=== PATIENT | female | born 1955 | race Caucasian/White ===

== ENCOUNTER 2018-09-27 14:30 | Inpatient (IN) ==
[2018-09-27] MEDS ORDERED: Nitroglycerin 0.4 MG TAB.SUBL SL PRN (21:49)
[2018-09-27] MEDS ORDERED: *HR* OxyCODONE Immed Rel 5 MG TABLET PO PRN (21:49)
[2018-09-28 05:50] LABS: Basophils % 0.4 %; Eosinophils # 0.2 K/mcL (0.0-0.6); Eosinophils % 3.5 %; Hematocrit 31.5 % (35.3-44.9); Immature Granulocytes % 0.2 % (0-4); Lymphocytes # 0.9 K/mcL (0.6-4.6); Lymphocytes % 18.5 %; Mean Corpuscular HGB Conc 31.7 g/dL (31.6-35.5); Mean Corpuscular Hemoglobin 28.7 pg (28.0-33.3); Mean Corpuscular Volume 90.3 fL (83.0-100.0); Mean Platelet Volume 10.8 fL (9.4-12.4); Monocytes # 0.3 K/mcL (0.0-1.3); Monocytes % 6.5 %; Neutrophils # 3.6 K/mcL (1.6-8.9); Platelet Count 171 K/mcL (140-400); Red Blood Count 3.49 M/mcL (3.82-4.97); Red Cell Distribution Width 18.2 % (11.5-14.5); Segmented Neutrophils % 70.9 %
[2018-09-28 06:07] LABS: Alanine Aminotransferase 9 Units/L (7-52); Albumin 2.7 g/dL (3.5-5.7); Albumin/Globulin Ratio 0.7 (1.1-2.2); Alkaline Phosphatase 326 Units/L (34-104); Aspartate Amino Transferase 18 Units/L (13-39); BUN/Creatinine Ratio 41 (6-26); Bilirubin,Total 1.5 mg/dL (0.3-1.0); Blood Urea Nitrogen 12 mg/dL (8-23); Calcium 8.6 mg/dL (8.6-10.3); Carbon Dioxide 26 mEq/L (23-29); Chloride 105 mEq/L (98-107); Globulin 3.9 g/dL (2.4-3.5); Glucose 82 mg/dL (70-105); Osmolality,Calculated 281 (280-300); Potassium 4.3 mEq/L (3.5-5.1); Sodium 136 mEq/L (136-145); Total Protein 6.6 g/dL (6.4-8.9); eGFR For Non-African Americans > 60 (> 60)
[2018-09-28] MEDS: Nitroglycerin 1 INCH/GM PACKET TP SCH ×3 (07:04→18:14)
[2018-09-28] MEDS: *HR* Digoxin 0.125 MG TABLET PO SCH (08:18)
[2018-09-28] MEDS: Diltiazem CD (24hr) 120 MG CAPSULE PO SCH (08:18)
[2018-09-28] MEDS: methIMAzole 5 MG TABLET PO SCH (08:18)
[2018-09-28] MEDS: Aspirin 325 MG TABLET PO SCH (08:18)
[2018-09-28] MEDS: Lisinopril 20 MG TABLET PO SCH (08:18)
[2018-09-28] MEDS: Lactobacillus 1 EACH CAP.SPRINK PO SCH (08:18)
[2018-09-28] MEDS: Apixaban 5 MG TABLET PO SCH ×2 (08:18→20:19)
[2018-09-28] MEDS: Furosemide 20 MG TABLET PO SCH ×2 (08:18→20:19)
[2018-09-28] MEDS: Bumetanide 1 MG TABLET PO SCH (08:18)
[2018-09-28] MEDS: Isosorbide MONOnitrate (24 HR) 30 MG TAB.ER.24H PO SCH (08:18)
[2018-09-28] MEDS: Venlafaxine XR (24 HR) 75 MG CAP.ER.24H PO SCH (08:19)
[2018-09-28] MEDS: Pregabalin 75 MG CAPSULE PO SCH ×2 (08:19→20:19)
[2018-09-28] MEDS ORDERED: ALPRAZolam 0.5 MG TABLET PO SCH (09:00)
[2018-09-28] MEDS ORDERED: ALPRAZolam 0.25 MG TABLET PO PRN (11:37)
--- NOTE | 2018-09-28 11:39 | Internal Med History&Physical ---
Addendum entered and electronically signed by Marvin Lee MD 09/28/18 13:21: I have personally performed a face to face evaluation on this patient. I have r eviewed and agree with the care plan. History and Exam by me shows: Patient was interviewed but frequently fell asleep during interview. She states that this is because of her multiple medications. To summarize the chart review, emergency room physician comments, patient responses: Patient was admitted 5 days ago) she says 3) with chest pain and dyspnea. She had recurrence of rapid ventricular rate atrial fibrillation. She has about a year of symptoms now felt to be hyperthyroidism and followed with a Dr. Kenyon, endocrinology, at [facility]. She last saw her on September 04 and had an in crease in her medication which she says she takes twice a day. Review of home medicine, however, shows only 40 mg of methimazole once a day. (I suspect noncompliance and we are trying to find actual progress notes from the claims counsel at [facility].) She admits to 20 pound weight loss but is unclear if this since last spring, over the last year, or exactly when. Her chest pain was felt by cardiology at [facility] to be musculoskeletal. For this reason, she was discharged to us for rehabilitation as she was deconditioned and weak. Echocardiogram while at [facility] shows that she has mild to moderate right ventricular dysfunction, large atria bilaterally, and moderate regurgitation of aortic pulmonic and mitral valves. On the way here, during transportation, she developed recurrent low frontal chest pain. This was felt to may musculoskeletal and her EKG was unchanged with no troponins. However, she had markedly elevated d-dimer and underwent CAT scan in the emergency room which showed pleural effusions, bibasilar atelectasis, and reflux of blood into her inferior vena cava, consistent with congestive heart failure. The emergency room physician felt that she did not have angina and that she could be admitted for rehabilitation. She has needed oxygen at home and she is not sure why. She has never been a smoker and has no other major respiratory conditions. She has known coronary disease with CABG times unknown vessels in 2008. She apparently has "9 stents" in placeshe tells me only 3. The most recent stent was about 3 years ago. She is not sure how long it has been since her last cardiac catheterization, may have been then. As noted above, she falls asleep multiple times during interview. Surgeries include CABG as above, cholecystectomy, stomach bypass for weight loss in about 1999. Past medical history as noted. She also is on venlafaxine so I assume she is depressed. Atrial fibrillation is of recent onset and treated with her thyroid medication and multiple medications. She tried beta césar (?) But during her hospitalization she was placed back on her Cardizem, extended release. She has dentures but they are at home. She never has smoked or drank alcohol. She uses no street drugs. She lives at home alone but has a daughter nearby. Family history is noncontributory. Again, ROS is limited by patient's sedation. Patient has no complaint of chest discomfort, dyspnea, orthopnea, breathing problems, palpitations, nausea or vomiting, constipation or diarrhea, other changes in bowel habits, heartburn, difficulty with urination, kidney problems or kidney stones, fevers chills or sweats, rash or itching, seizures, headache or lightheadedness, heat or cold intolerance, blood problems or anemia, or other new complaints, except as mentioned above. Review of systems is otherwise negative. Examination: (Except as mentioned above): General: In no apparent distress, oriented 3. She appears far older than her stated age. She is on oxygen at 2 L per nasal cannula. Of note, she does have muscular atrophy as noted by her palms and temporal muscles. Head: Atraumatic and normocephalic. Eyes: Extraocular muscles are intact, pupils equal round and reactive to light and accommodation. Sclerae anicteric. Ears: External ears are normal to inspection and hearing is grossly limited. She does not admit to being hard of hearing and frequently mis-answers questions if she does not hear adequately. Nose: Patent without lesion noted. Mouth: No intraoral lesions seen. The patient is edentulous. Neck: Supple with trachea midline. There is no thyromegaly or adenopathy and carotids are 2+ without bruit heard. Respiratory: No use of accessory muscles. Lungs are remarkable for diminished breath sounds, throughout except left upper lobe. No rales or rhonchi or wheezes are heard. Cardiovascular: Rate is controlled had about 55 but irregular. There was an irregular examination tumor nursing earlier. Heart sounds are distant. However, she does seem to have a diffuse murmur about 1 or 2/6 systolic. Abdomen: Bowel sounds are normal. No hepatosplenomegaly or masses but does have tenderness which is diffuse, non-guarding or rebound. It seems to be mild in degree. Extremities: No cyanosis clubbing but she does have 1+ left and 2+ right calf and ankle edema. She has right calf tenderness, as well. Homans sign is negative. Neurological: A and O 3. Limited by sedation. Cranial nerves II through XII are intact. No focal deficits and no abnormal movements or postures. Skin: Warm and non-diaphoretic with no lesions noted. Breasts, pelvic and rectal: Not examined. I feel that her problem is uncompensated high output heart failure related to her hyperthyroidism. I discussed with pharmacy and we will give her divided doses of methimazole at 20 mg twice a day. She is on too much sedation and we will decrease her Xanax. In addition, we will decrease her pain medication from OxyContin code own to tramadol. For now, we will allow her to stay on Nitropaste as heart failure adjunct. We will try to obtain records from endocrinology at [facility]. (Incidentally, she says she has a follow-up on October 09 or with that physician.) I have instructed therapy to let us know how she is progressing and to limit her therapy by respiratory or cardiac symptoms. She could have occult ischemia. She has markedly low albumin which could be related to her gastric bypass or her hyperthyroidism with muscle loss. However, she also has a markedly increased alkaline phosphatase so we will need to make sure she does not have: Bile duct stones, other liver dysfunction, etc. This could be related to heart failure, as well. I think primary problem is hypothyroidism and this needs to be addressed with nuclear medicine and thyroid ablation or surgery. Anemia is presumed to be related to chronic illness. Will need to follow. Original Note: Date of Encounter: 09/28/18 Time of Encounter: 11:17 Assessment and Plan (1) General weakness Current visit: Yes Status: Acute PT and OT to eval and treat, will follow progress. (2) Hyperthyroidism Current visit: Yes Status: Chronic continue methimazole, will obtain records from [facility] claims counsel, Dr Naty Mahajan. (3) Anemia Current visit: Yes Status: Chronic hgb stable. 10.0. will monitor. Qualifiers: Anemia type: iron deficiency Iron deficiency anemia type: unspecified iron deficiency Qualified Code(s): D50.9 - Iron deficiency anemia, unspecified (4) COPD (chronic obstructive pulmonary disease) Current visit: Yes Status: Chronic continue O2 and inhaled meds. monitor. Qualifiers: COPD type: unspecified COPD Qualified Code(s): J44.9 - Chronic obstructive pulmonary disease, unspecified (5) Diastolic CHF, acute on chronic Current visit: Yes Status: Acute continue Bumex. monitor. (6) CAD (coronary artery disease) Current visit: Yes Status: Chronic continue current meds. monitor. Qualifiers: Coronary Disease-Associated Artery/Lesion type: [place] artery [place] vs. transplanted heart: [place] heart Associated angina: without angina Qualified Code(s): I25.10 - Atherosclerotic heart disease of [place] coronary artery without angina pectoris (7) Afib Current visit: Yes Status: Chronic continue eliquis. will start telemetry and monitor. Qualifiers: Atrial fibrillation type: chronic Qualified Code(s): I48.2 - Chronic atrial fibrillation (8) Chest pain Current visit: Yes Status: Resolved continue pain meds and nitro. monitor labs and telemetry. Qualifiers: Chest pain type: intercostal pain Qualified Code(s): R07.82 - Intercostal pain Internal Medicine - H&P: HPI Admitted From: Intrahospital Transfer Plans for Post Hospital Care: Home History of present illness: Ms. Dobbins is a 63 year old female admitted to rehab unit from [facility] for deconditioning or weakness due to CAD, and hyperthyroidism. past medical hx includes: CAD, CABG 3 vessel with 9 stents, a fib (currently on apixaban), CHF, COPD, hyperlipidemia, hypertension, osteoarthritis. Patient had gastric bypass in 1999. Patient originally presented to [facility] with complaints of chest pain, palpitations and shortness of breath. She was found to be in a fib with RVR. Also found have pulmonary vascular congestion with moderate bilateral pleural effusions. Patient was diuresed and cardiology consulted and increased Cardizem. Patient is followed by [facility] endocrinology, Dr. Naty Mahajan, will try to obtain records as she is hyperthyroidism. taking methimazoe. has never been a smoker or ETOH lives at home alone, very hard of hearing. pt states she is feeling stronger, has off and on chest pain, states relieved with pain medication.. no SOB. on O2 at 2 liters and maintaining sats >95%. states she uses 4 liters at home. states she has had a recent 20lb weight loss and drinks 4 ensures a day, but has at least 6 BM's per day. Past Med Surg Social Fam HX - Past Medical History Medical history: arthritis, atrial fibrillation, CHF, COPD, coronary artery disease, CVA, GERD, hyperlipidemia, hypertension, myocardial infarction, osteoporosis, thyroid disease, other Additional medical history: PITTING EDEMA Psychiatric history: depression, other - Past Surgical History Surgical History: cholecystectomy, coronary bypass (CABG), hysterectomy, other Additional surgical history: Kidney stones - Social History Smoking Status: Never smoker Smokeless Tobacco Status: No Alcohol use: none Drug use: none - Family History Father Family Member Ethnicity: Non- Living Status: Hx Family Cardiac Disorders: Yes ([place]) Brother Family Member Ethnicity: Non- Living Status: Sister Family Member Ethnicity: Non- Twin of Family Member: Yes, Identical Living Status: Hx Family Cardiac Disorders: Yes (afib) Hx Family Cancer: Yes (Colon) Mother Adopted: No Family Member Ethnicity: Non- Living Status: Hx Family Cardiac Disorders: Yes ([place]) Hx Family Respiratory Disorders: No Hx Family Cancer: Yes (Colon ) Hx Family GI Disorders: Yes (Bowel Cancer) Hx Family Endocrine Disorder: Yes (DM) Hx Family Neuromuscular Disorders: No Hx Family Neurologic Disorders: No Hx Family HEENT Disorders: No Hx Family Autoimmune Disorders: No Internal Medicine - H&P: Meds ALPRAZolam [Xanax 0.5 MG Tablet] 0.5 mg PO TID 02/10/18 [History] Aspirin 325 mg PO DAILY 02/10/18 [History] Bumetanide [Bumex] 1 mg PO DAILY 02/10/18 [History] Digoxin [Lanoxin] 0.125 mg PO DAILY 02/10/18 [History] Ferrous Sulfate [Iron] 325 mg PO Q48H 02/10/18 [History] Furosemide [Lasix] 20 mg PO BID 02/10/18 [History] Isosorbide MONOnitrate (24 HR) [Imdur] 30 mg PO DAILY 02/10/18 [History] Lisinopril [Zestril] 40 mg PO DAILY 02/10/18 [History] Nitroglycerin [Nitrostat] 0.4 mg SL Q5M PRN 02/10/18 [History] Pregabalin [Lyrica] 75 mg PO BID 02/10/18 [History] Simvastatin [Zocor] 20 mg PO HS 02/10/18 [History] methIMAzole [Methimazole] 40 mg PO DAILY 02/10/18 [History] Apixaban [Eliquis] 5 mg PO BID #60 tablet 02/12/18 [Rx] Diltiazem CD (24hr) [Cardizem CD] 120 mg PO DAILY #30 cap.er.24h 02/12/18 [Rx] Amitriptyline [Elavil] 25 mg PO HS 03/08/18 [History] Venlafaxine HCl [Venlafaxine HCl ER] 75 mg PO DAILY 03/08/18 [History] Lactobacillus [Culturelle] 1 each PO DAILY #90 cap.sprink 05/25/18 [Rx] Alendronate Sodium [Fosamax] 70 mg PO GUERRIER 09/23/18 [History] Oxycodone HCl [Roxybond] 5 mg PO BID PRN 09/23/18 [History] Amoxicillin/Clavulanate [Augmentin] 875 mg PO BIDWM #8 tablet 09/27/18 [Rx] Allergy/AdvReac Type Severity Reaction Status Date / Time hydrocodone [From Vicodin] Allergy Swelling Verified 09/27/18 19:34 of Lip/Tongue/Throat morphine AdvReac Rash Verified 09/27/18 19:34 All Systems PM: A 10-system review of systems was performed and is negative for pertinent findings except as documented above in the HPI. - Constitutional Constitutional: weakness, weight loss - EENT Eyes: no change in vision, no discharge, no pain, no photophobia Ears: no ear discharge, no ear pain, no tinnitus Nose, mouth and throat: no dysphagia, no nasal discharge, no neck pain, no sore throat - Cardiovascular Cardiovascular ROS IM: as per HPI, no chest pain, no diaphoresis, no dyspnea, no lightheadedness, no palpitations, no syncope - Respiratory Respiratory: no cough, no dyspnea, no wheezing, no excessive phlegm production - Gastrointestinal Gastrointestinal: no abdominal pain, no diarrhea, no hematemesis, no hematochezia, no melena, no nausea, no vomiting - Genitourinary Genitourinary: no change in urinary stream, no dysuria, no flank pain, no hematuria - Musculoskeletal Musculoskeletal ROS IM: no numbness, no tingling - Integumentary Integumentary IM: no rash, no unusual bruising - Neurological Neurological ROS: weakness, no confusion, no convulsions, no focal weakness, no numbness, no tingling, no tremor(s) - Endocrine Endocrine IM: as per HPI - Hematologic/Lymphatic Hematologic/Lymphatic: no easy bruising - Constitutional Vitals: Temp Pulse Resp BP Pulse Ox 98.1 F 60 14 131/67 97 09/28/18 07:00 09/28/18 07:00 09/28/18 07:00 09/28/18 07:00 09/28/18 07:00 General appearance: Present: cooperative, A&O X 3, pleasant, no acute distress, underweight, answers questions appropriately Exam: [place] - Head Head exam: Present: atraumatic, normocephalic - Eye Eye exam: Present: PERRL, conjuntiva pink, sclera anicteric Pupils: Present: PERRL - Neck Neck exam general surgery: Present: supple, trachea midline. Absent: lymphadenopathy - Respiratory Respiratory exam: Present: CTAB. Absent: accessory muscle use, rales, rhonchi, wheezes Additional comments: diminished bilat bases. - Cardiovascular Cardiovascular exam: Present: irregular rhythm, +S1, +S2. Absent: diastolic murmur, gallop, rubs, systolic murmur - GI/Abdominal GI/Abdominal exam: Present: normal bowel sounds, soft, no peritoneal signs. Absent: distended, tenderness - Extremities Exam Extremities exam: Present: pedal edema, warm, radial pulses palpable and symmetrical. Absent: calf tenderness, cyanotic Additional comments: trace nonpitting edema BLE. - Neurological Exam Neurological exam: Present: CN II-XII intact, oriented X3, no focal deficits. Absent: pronater drift, facial droop, speech deficit - Skin Skin exam: Present: dry, intact Internal Med - H&P Results - Labs CBC & Chem 7: 09/28/18 05:45 09/28/18 05:45 Labs: Short CBC 09/28/18 Range/Units 05:45 WBC 5.1 (4.3-11.1) K/mcL Hgb 10.0 L (11.5-15.4) g/dL Hct 31.5 L (35.3-44.9) % Plt Count 171 (140-400) K/mcL Neutrophils # 3.6 (1.6-8.9) K/mcL BMP 09/28/18 05:45 Sodium 136 Potassium 4.3 Chloride 105 Carbon Dioxide 26 BUN 12 Creatinine 0.29 L Glucose 82 Calcium 8.6 Liver Function 09/28/18 Range/Units 05:45 Total Bilirubin 1.5 H (0.3-1.0) mg/dL AST 18 (13-39) Units/L ALT 9 (7-52) Units/L Alkaline Phosphatase 326 H (34-104) Units/L Albumin 2.7 L (3.5-5.7) g/dL
[2018-09-28 12:36] LABS: Thyroid Stimulating Hormone < 0.010 mcIU/mL (0.340-5.600)
[2018-09-29] MEDS: Nitroglycerin 1 INCH/GM PACKET TP SCH ×5 (00:06→23:41)
[2018-09-29] MEDS: traMADol 50 MG TABLET PO PRN ×2 (05:49→12:38)
[2018-09-29 06:17] LABS: Alanine Aminotransferase 10 Units/L (7-52); Albumin 2.8 g/dL (3.5-5.7); Albumin/Globulin Ratio 0.7 (1.1-2.2); Alkaline Phosphatase 323 Units/L (34-104); Aspartate Amino Transferase 19 Units/L (13-39); BUN/Creatinine Ratio 40 (6-26); Bilirubin,Total 1.3 mg/dL (0.3-1.0); Blood Urea Nitrogen 12 mg/dL (8-23); Calcium 8.8 mg/dL (8.6-10.3); Carbon Dioxide 28 mEq/L (23-29); Chloride 104 mEq/L (98-107); Globulin 4.1 g/dL (2.4-3.5); Glucose 82 mg/dL (70-105); Osmolality,Calculated 283 (280-300); Potassium 4.5 mEq/L (3.5-5.1); Sodium 137 mEq/L (136-145); Total Protein 6.9 g/dL (6.4-8.9); eGFR For Non-African Americans > 60 (> 60)
[2018-09-29] MEDS: Apixaban 5 MG TABLET PO SCH ×2 (08:19→21:03)
[2018-09-29] MEDS: Pregabalin 75 MG CAPSULE PO SCH ×2 (08:20→21:03)
[2018-09-29] MEDS: Diltiazem CD (24hr) 120 MG CAPSULE PO SCH (08:20)
[2018-09-29] MEDS: Venlafaxine XR (24 HR) 75 MG CAP.ER.24H PO SCH (08:20)
[2018-09-29] MEDS: *HR* Digoxin 0.125 MG TABLET PO SCH (08:20)
[2018-09-29] MEDS: Lactobacillus 1 EACH CAP.SPRINK PO SCH (08:20)
[2018-09-29] MEDS: Lisinopril 20 MG TABLET PO SCH (08:20)
[2018-09-29] MEDS: Bumetanide 1 MG TABLET PO SCH (08:20)
[2018-09-29] MEDS: Isosorbide MONOnitrate (24 HR) 30 MG TAB.ER.24H PO SCH (08:20)
[2018-09-29] MEDS: Furosemide 20 MG TABLET PO SCH ×2 (08:20→21:03)
[2018-09-29] MEDS: Aspirin 325 MG TABLET PO SCH (08:20)
[2018-09-29] MEDS: methIMAzole 5 MG TABLET PO SCH (08:21)
--- NOTE | 2018-09-29 09:42 | Internal Med Progress Note ---
Addendum entered and electronically signed by Marvin Lee MD 09/29/18 11:39: I have personally performed a face to face evaluation on this patient. I have r eviewed and agree with the care plan. History and Exam by me shows: Patient had chest discomfort overnight and this morning. It has responded to her Ultram and she has tolerated this better than oxycodone. Nursing notes that she is more alert. The chest pain is left low chest and is related to i nspiration, especially deep inspiration. I encouraged her to try to breathe deeply to keep her lungs opened up. She denies any other new complaints. Telemetry reveals that she is now in sinus rhythm with a rate of 60-70. She has converted out of the junctional rhythm. Discussed care with other providers and/or nursing. Patient has no complaint of chest discomfort, dyspnea, orthopnea, palpitations, nausea or vomiting, constipation or diarrhea, other changes in bowel habits, difficulty with urination, rash or itching, or other new complaints, except as mentioned above. Review of systems is otherwise negative. Examination: (Except as mentioned above): General: In no apparent distress. Alert and oriented 3. Nondiaphoretic. She is far less sleepier than the last 2 days. Head: Atraumatic and normocephalic. Respiratory: Lungs are clear but still has markedly diminished right sided and left basilar breath sounds. Left upper field is normal. This actually sounds better than yesterday but still is diminished. Cardiovascular: Regular rate and rhythm without murmur appreciated. Abdomen: Bowel sounds are normal. No hepatosplenomegaly or mass. She is still diffusely tender, especially at the right upper quadrant, just lateral to the epigastrium. This has no guarding or rebound and is milder than before.. Extremities: No cyanosis or clubbing. There is still edema with right worse than left but this is actually improved versus yesterday. There is no cord or calf tenderness but she has mild right preibial tenderness. Skin: Warm and non-diaphoretic with no new lesions noted. Laboratory still shows elevated alkaline phosphatase and for this reason we will request an abdominal ultrasound when it can be scheduled. This is to looked us make sure she does not have common duct stone, etc. Otherwise, we will consider a bone scan and or assume that this is related to the catabolic state of her hyperthyroidism. I am trying to find how we can do teleconference consult with endocrinology from [facility]. I will try to reach her daughter, today. I am still concerned that her hyperthyroidism needs to be addressed sooner than in December. Because of her limited ability, somnolence, and decreased muscle strength, she was switched from rehabilitation to swing status, today. Original Note: Date of Encounter: 09/29/18 Time of Encounter: 09:40 - Assessment and plan (1) Diastolic CHF, acute on chronic Current Visit: Yes Status: Chronic Assessment and plan: No acute issues at this time. Patient to continue have slight dyspnea with exertion, but respiratory effort is relaxed while at rest. Noted continued diminished breath sounds to basilar morrow. No productive cough. Most recent BNP showed 2085. Minimal pedal edema. Vital signs of been stable. We will continue with current medications. Patient to continue with physical therapy as tolerated. (2) Type 2 diabetes mellitus Current Visit: Yes Status: Chronic Assessment and plan: No acute issues. Patient's glucose have been within normal limits on labs. We will continue with current medications. Qualifiers: Diabetes mellitus manager long term care insulin use: without fdc use Diabetes mellitus complication status: without complication Qualified Code(s): E11.9 - Type 2 diabetes mellitus without complications (3) COPD (chronic obstructive pulmonary disease) Current Visit: Yes Status: Chronic Assessment and plan: No acute issues. Lungs are clear throughout upper morrow with diminished bases. No productive cough. Patient does become dyspneic with minimal effort. We will continue with current medications and bronchodilators. Qualifiers: COPD type: unspecified COPD Qualified Code(s): J44.9 - Chronic obstructive pulmonary disease, unspecified (4) Atrial fibrillation with RVR Current Visit: Yes Status: Chronic Assessment and plan: No acute issues. Patient's heart rate remains irregular with a controlled ventricular rate less than 100. We will continue with current medications. (5) CAD (coronary artery disease) Current Visit: Yes Status: Chronic Assessment and plan: No acute issues. Patient denies any current chest discomforts or palpitations. Patient continues to have nitrates in use through Nitropaste. We will continue with current medications and plan a care. Patient is to continue to mobilize through therapy Qualifiers: Coronary Disease-Associated Artery/Lesion type: [place] artery [place] vs. transplanted heart: [place] heart Associated angina: without angina Qualified Code(s): I25.10 - Atherosclerotic heart disease of [place] coronary artery without angina pectoris (6) Pneumonia Current Visit: Yes Status: Acute Assessment and plan: Patient continues on Augmentin. Lungs with diminished bases but otherwise clear. No productive cough. Patient does continue to have slight dyspnea with exertion. Has been afebrile. We will continue with current plan of care Qualifiers: Pneumonia type: due to unspecified organism Laterality: unspecified laterality Lung location: unspecified part of lung Qualified Code(s): J18.9 - Pneumonia, unspecified organism (7) Hyperthyroidism Current Visit: Yes Status: Acute Assessment and plan: No acute issues. Patient continues on methimazole 40mg daily for hyperthyroidism. Most recent TSH was <0.010. - Subjective Interval history: Patient appears relaxed and currently denies any discomforts or shortness of breath. Patient denies any palpitations. Afebrile. Patient noted to have slight dyspnea during minimal exertion such as repositioning during exam. Patient was asked to hold her breath for a few seconds while listening to carotids, and this made her slightly dyspneic. Patient denies any difficulty breathing and states no productive cough. - Constitutional Vitals: Temp Pulse Resp BP Pulse Ox 98.4 F 68 20 130/55 96 09/29/18 08:10 09/29/18 08:10 09/29/18 08:10 09/29/18 08:10 09/29/18 08:10 General appearance: Present: cooperative, A&O X 3, pleasant, no acute distress, underweight, answers questions appropriately - Head Head exam: Present: atraumatic, normocephalic - Eye Eye exam: Present: PERRL, conjuntiva pink, sclera anicteric Pupils: Present: PERRL - Neck Neck exam general surgery: Present: supple, trachea midline. Absent: lymphadenopathy - Respiratory Respiratory exam: Present: CTAB. Absent: accessory muscle use, rales, rhonchi, wheezes Additional comments: Lungs are clear throughout upper morrow with diminished bases. Respiratory effort appears relaxed while at rest but noted to increase to 24/m with minimal exertion during position changing - Cardiovascular Cardiovascular exam: Present: RRR, +S1, +S2. Absent: diastolic murmur, gallop, rubs, systolic murmur - GI/Abdominal GI/Abdominal exam: Present: normal bowel sounds, soft, no peritoneal signs. Absent: distended, tenderness - Extremities Exam Extremities exam: Present: warm, radial pulses palpable and symmetrical. Ab sent: calf tenderness, cyanotic, pedal edema Additional comments: Slight nonpitting edema to bilateral lower extremities. Bilateral lower legs with skin slightly reddened. - Neurological Exam Neurological exam: Present: CN II-XII intact, oriented X3, no focal deficits. Absent: pronater drift, facial droop, speech deficit - Skin Skin exam: Present: dry, intact Internal Medicine: Result - Labs CBC & Chem 7: 09/28/18 05:45 09/29/18 05:45 Labs: BMP 09/29/18 05:45 Sodium 137 Potassium 4.5 Chloride 104 Carbon Dioxide 28 BUN 12 Creatinine 0.30 L Glucose 82 Calcium 8.8 Liver Function 09/29/18 Range/Units 05:45 Total Bilirubin 1.3 H (0.3-1.0) mg/dL AST 19 (13-39) Units/L ALT 10 (7-52) Units/L Alkaline Phosphatase 323 H (34-104) Units/L Albumin 2.8 L (3.5-5.7) g/dL Consult Discharge Plan - Plan Referrals: Mu Smith, [facility]IXER [Primary Care Provider] -
[2018-09-30] MEDS: traMADol 50 MG TABLET PO PRN ×3 (03:25→18:03)
[2018-09-30] MEDS: Nitroglycerin 1 INCH/GM PACKET TP SCH ×3 (05:53→18:03)
[2018-09-30] MEDS: Lisinopril 20 MG TABLET PO SCH (08:18)
[2018-09-30] MEDS: Bumetanide 1 MG TABLET PO SCH (08:18)
[2018-09-30] MEDS: methIMAzole 5 MG TABLET PO SCH (08:18)
[2018-09-30] MEDS: Pregabalin 75 MG CAPSULE PO SCH ×2 (08:18→20:49)
[2018-09-30] MEDS: Furosemide 20 MG TABLET PO SCH ×2 (08:18→20:50)
[2018-09-30] MEDS: Apixaban 5 MG TABLET PO SCH ×2 (08:18→20:50)
[2018-09-30] MEDS: Aspirin 325 MG TABLET PO SCH (08:18)
[2018-09-30] MEDS: Diltiazem CD (24hr) 120 MG CAPSULE PO SCH (08:18)
[2018-09-30] MEDS: Lactobacillus 1 EACH CAP.SPRINK PO SCH (08:18)
[2018-09-30] MEDS: *HR* Digoxin 0.125 MG TABLET PO SCH (08:18)
[2018-09-30] MEDS: Venlafaxine XR (24 HR) 75 MG CAP.ER.24H PO SCH (08:18)
[2018-09-30] MEDS: Isosorbide MONOnitrate (24 HR) 30 MG TAB.ER.24H PO SCH (08:18)
--- NOTE | 2018-09-30 12:40 | Internal Med Progress Note ---
Addendum entered and electronically signed by Abby Treviño 10/02/18 20:33: I have personally performed a face to face evaluation on this patient. I have reviewed and agree with the care plan Original Note: Date of Encounter: 09/30/18 Time of Encounter: 12:38 - Assessment and plan (1) Diastolic CHF, acute on chronic Current Visit: Yes Status: Chronic Assessment and plan: Continues with no issues. Patient to continue have slight dyspnea with exertion, but respiratory effort is relaxed while at rest. Noted continued diminished breath sounds to basilar morrow. No productive cough. Most recent BNP showed 2085. Minimal pedal edema. Vital signs of been stable. We will continue with current medications. Patient to continue with physical therapy as tolerated. (2) Type 2 diabetes mellitus Current Visit: Yes Status: Chronic Assessment and plan: No acute issues. Patient's glucose have been within normal limits on labs. We will continue with current medications. Qualifiers: Diabetes mellitus long goods drier insulin use: without group home use Diabetes mellitus complication status: without complication Qualified Code(s): E11.9 - Type 2 diabetes mellitus without complications (3) COPD (chronic obstructive pulmonary disease) Current Visit: Yes Status: Chronic Assessment and plan: No acute issues. Lungs are clear throughout upper morrow with diminished bases. No productive cough. Patient does become dyspneic with minimal effort. We will continue with current medications and bronchodilators. Qualifiers: COPD type: unspecified COPD Qualified Code(s): J44.9 - Chronic obstructive pulmonary disease, unspecified (4) CAD (coronary artery disease) Current Visit: Yes Status: Chronic Qualifiers: Coronary Disease-Associated Artery/Lesion type: [place] artery [place] vs. transplanted heart: [place] heart Associated angina: without angina Qualified Code(s): I25.10 - Atherosclerotic heart disease of [place] coronary artery without angina pectoris (5) Pneumonia Current Visit: Yes Status: Acute Assessment and plan: Patient continues on Augmentin. Lungs with diminished bases but otherwise clear. No productive cough. Patient does continue to have slight dyspnea with exertion. Has been afebrile. We will continue with current plan of care Qualifiers: Pneumonia type: due to unspecified organism Laterality: unspecified laterality Lung location: unspecified part of lung Qualified Code(s): J18.9 - Pneumonia, unspecified organism (6) Hyperthyroidism Current Visit: Yes Status: Acute Assessment and plan: No acute issues. Patient continues on methimazole 40mg daily for hyperthyroidism. Most recent TSH was <0.010. (7) Chest pain Current Visit: Yes Status: Resolved Assessment and plan: Patient continues complaining of pain to her left chest flank, which she states increases with movement and deep inspiration. Initial cardiac workup has been negative. Patient has been on the monitor until yesterday afternoon with no ectopy noted. We will continue with current pain medications. We will obtain a ESR and CRP with next set of labs Qualifiers: Chest pain type: intercostal pain Qualified Code(s): R07.82 - Intercostal pain - Time Spent With Patient less than 15 minutes - Subjective Interval history: Patient appears relaxed and currently denies any discomforts or shortness of breath, but does states that she experienced chest pain to the left chest flank earlier this morning. States that her pain increases with movement and deep inspiration. Patient denies any palpitations. Afebrile. Patient denies any difficulty breathing and states no productive cough. - Constitutional Vitals: Temp Pulse Resp BP Pulse Ox 98.0 F 81 16 108/68 95 09/30/18 08:19 09/30/18 08:19 09/30/18 08:19 09/30/18 08:19 09/30/18 05:47 General appearance: Present: cooperative, A&O X 3, pleasant, no acute distress, underweight, answers questions appropriately - Head Head exam: Present: atraumatic, normocephalic - Eye Eye exam: Present: PERRL, conjuntiva pink, sclera anicteric Pupils: Present: PERRL - Neck Neck exam general surgery: Present: supple, trachea midline. Absent: lymph adenopathy - Respiratory Respiratory exam: Present: CTAB. Absent: accessory muscle use, rales, rhonchi, wheezes - Cardiovascular Cardiovascular exam: Present: RRR, +S1, +S2. Absent: diastolic murmur, gallop, rubs, systolic murmur - GI/Abdominal GI/Abdominal exam: Present: normal bowel sounds, soft, no peritoneal signs. Absent: distended, tenderness - Extremities Exam Extremities exam: Present: warm, radial pulses palpable and symmetrical. Absent: calf tenderness, cyanotic, pedal edema - Neurological Exam Neurological exam: Present: CN II-XII intact, oriented X3, no focal deficits. Absent: pronater drift, facial droop, speech deficit - Skin Skin exam: Present: dry, intact Internal Medicine: Result - Labs CBC & Chem 7: 09/28/18 05:45 09/29/18 05:45 Consult Discharge Plan - Plan Referrals: Mu Smith, DENTAL AMALGAM PROCESSOR [Primary Care Provider] -
[2018-10-01] MEDS: Nitroglycerin 1 INCH/GM PACKET TP SCH ×4 (00:07→21:27)
[2018-10-01] MEDS: traMADol 50 MG TABLET PO PRN ×3 (00:12→21:30)
[2018-10-01 05:19] LABS: Hematocrit 38.5 % (35.3-44.9); Hemoglobin 12.3 g/dL (11.5-15.4); Mean Corpuscular HGB Conc 31.9 g/dL (31.6-35.5); Mean Corpuscular Hemoglobin 28.7 pg (28.0-33.3); Mean Corpuscular Volume 89.7 fL (83.0-100.0); Mean Platelet Volume 11.2 fL (9.4-12.4); Platelet Count 209 K/mcL (140-400); Red Blood Count 4.29 M/mcL (3.82-4.97); Red Cell Distribution Width 16.6 % (11.5-14.5)
[2018-10-01 05:51] LABS: Alanine Aminotransferase 16 Units/L (7-52); Albumin/Globulin Ratio 0.7 (1.1-2.2); Alkaline Phosphatase 311 Units/L (34-104); Aspartate Amino Transferase 30 Units/L (13-39); BUN/Creatinine Ratio 53 (6-26); Bilirubin,Total 1.1 mg/dL (0.3-1.0); Blood Urea Nitrogen 18 mg/dL (8-23); Calcium 8.8 mg/dL (8.6-10.3); Carbon Dioxide 29 mEq/L (23-29); Chloride 100 mEq/L (98-107); Globulin 4.3 g/dL (2.4-3.5); Glucose 81 mg/dL (70-105); Magnesium 2.2 mg/dL (1.6-2.6); Osmolality,Calculated 279 (280-300); Potassium 4.4 mEq/L (3.5-5.1); Sodium 134 mEq/L (136-145); Total Protein 7.3 g/dL (6.4-8.9); eGFR For Non-African Americans > 60 (> 60)
[2018-10-01] MEDS: Isosorbide MONOnitrate (24 HR) 30 MG TAB.ER.24H PO SCH (08:46)
[2018-10-01] MEDS: Apixaban 5 MG TABLET PO SCH ×2 (08:46→21:27)
[2018-10-01] MEDS: Bumetanide 1 MG TABLET PO SCH (08:46)
[2018-10-01] MEDS: Aspirin 325 MG TABLET PO SCH (08:46)
[2018-10-01] MEDS: Lactobacillus 1 EACH CAP.SPRINK PO SCH (08:46)
[2018-10-01] MEDS: methIMAzole 5 MG TABLET PO SCH (08:46)
[2018-10-01] MEDS: Pregabalin 75 MG CAPSULE PO SCH (08:46)
[2018-10-01] MEDS: *HR* Digoxin 0.125 MG TABLET PO SCH (08:46)
[2018-10-01] MEDS: Lisinopril 20 MG TABLET PO SCH (08:46)
[2018-10-01] MEDS: Venlafaxine XR (24 HR) 75 MG CAP.ER.24H PO SCH (08:46)
[2018-10-01] MEDS: Furosemide 20 MG TABLET PO SCH ×2 (08:46→21:27)
[2018-10-01] MEDS: Diltiazem CD (24hr) 120 MG CAPSULE PO SCH (08:47)
[2018-10-01] MEDS ORDERED: 0.9 % Sodium Chloride 500 ML IVC ONE (11:06)
[2018-10-01] MEDS: Pregabalin 50 MG CAPSULE PO SCH (21:28)
[2018-10-02] MEDS: Nitroglycerin 1 INCH/GM PACKET TP SCH ×3 (04:59→21:15)
[2018-10-02] MEDS: Bumetanide 1 MG TABLET PO SCH (08:21)
[2018-10-02] MEDS: Apixaban 5 MG TABLET PO SCH ×2 (08:21→21:14)
[2018-10-02] MEDS: Furosemide 20 MG TABLET PO SCH ×2 (08:21→21:14)
[2018-10-02] MEDS: Diltiazem CD (24hr) 120 MG CAPSULE PO SCH (08:21)
[2018-10-02] MEDS: Lactobacillus 1 EACH CAP.SPRINK PO SCH (08:22)
[2018-10-02] MEDS: Pregabalin 50 MG CAPSULE PO SCH ×2 (08:24→21:14)
[2018-10-02] MEDS: Venlafaxine XR (24 HR) 75 MG CAP.ER.24H PO SCH (08:24)
[2018-10-02] MEDS: *HR* Digoxin 0.125 MG TABLET PO SCH (08:24)
[2018-10-02] MEDS: Lisinopril 20 MG TABLET PO SCH (08:24)
[2018-10-02] MEDS: Aspirin 325 MG TABLET PO SCH (08:25)
[2018-10-02] MEDS: Isosorbide MONOnitrate (24 HR) 30 MG TAB.ER.24H PO SCH (08:25)
[2018-10-02] MEDS: methIMAzole 5 MG TABLET PO SCH (08:25)
[2018-10-02] MEDS: traMADol 50 MG TABLET PO PRN ×2 (12:39→21:27)
--- NOTE | 2018-10-02 20:45 | Internal Med Progress Note ---
Date of Encounter: 10/01/18 Time of Encounter: 09:15 - Subjective Interval history: - Assessment and plan (1) Diastolic CHF, acute on chronic Current Visit: Yes Status: Chronic Assessment and plan: Pt is volume contracted having high volume diarrhea and systolic bp low in mid 70s will give 500 cc NS once will decrease her q 8 hr nitropast to 1/2 inch may DC nitropaste as tolerated pt continues on her PO long acting nitrate at 30 mg and her dig and cardizem will decrease lisinopril from 40 to 20 mg continue to monitor if diarrhea resolves off of augmentin, will change lisinopril back to 40 mg (2) Type 2 diabetes mellitus Current Visit: Yes Status: Chronic Assessment and plan: No acute issues. Patient's glucose have been within normal limits on labs. We will continue with current medications. Qualifiers: Diabetes mellitus penitentiary insulin use: without penitentiary use Diabetes mellitus complication status: without complication Qualified Code(s): E11.9 - Type 2 diabetes mellitus without complications (3) COPD (chronic obstructive pulmonary disease) Current Visit: Yes Status: Chronic Assessment and plan: No acute issues. Lungs are clear throughout upper morrow with diminished bases. No productive cough. Patient does become dyspneic with minimal effort. We will continue with current medications and bronchodilators. Qualifiers: COPD type: unspecified COPD Qualified Code(s): J44.9 - Chronic obstructive pulmonary disease, unspecified (4) CAD (coronary artery disease) Current Visit: Yes Status: Chronic Qualifiers: Coronary Disease-Associated Artery/Lesion type: [place] artery [place] vs. transplanted heart: [place] heart Associated angina: without angina Qualified Code(s): I25.10 - Atherosclerotic heart disease of [place] coronary artery without angina pectoris stable BP lower will decrease her q 8 hr nitropast to 1/2 inch may DC as tolerated pt continues on her PO long acting nitrate at 30 mg and her dig and cardizem will decrease lisinopril from 40 o 20 mg (5) Pneumonia Current Visit: Yes Status: Acute Assessment and plan: Patient continues on Augmentin. Pneumonia resolved Because she is having severe diarrhea will DC it now if further antbx needed will choose alternative Lungs with diminished bases but otherwise clear. No productive cough. Has been afebrile. We will continue with current plan of care Qualifiers: Pneumonia type: due to unspecified organism Laterality: unspecified laterality Lung location: unspecified part of lung Qualified Code(s): J18.9 - Pneumonia, unspecified organism (6) Hyperthyroidism Current Visit: Yes Status: Acute Assessment and plan: No acute issues. Patient continues on methimazole 40mg daily for hyperthyroidism. Most recent TSH was <0.010. 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 - consider if pt would be candidate for other thyroid treatments (7) Chest pain Current Visit: Yes Status: Resolved Assessment and plan: Patient currently denies CP her blood pressure is running lower today Qualifiers: Chest pain type: intercostal pain Qualified Code(s): R07.82 - Intercostal pain - Time Spent With Patient less than 15 minutes - Subjective Interval history: PT has today reported two episodes of high volume watery diarrhea she is eating but says she feels very gassy she is still taking augmentin she states she has had several surgeries reports that her first major surgery was gastric bypass surgery says she weighed about 370 pound when had surgery thinks in 2002 says after that she lost about 70 pound but had dumping sydrome and frequent nausea some vomiting if things got stuck says she had many abd surgeries besides that including esther and total hysterectomy says she continued to loose weight but says after her she lost a lot of weight EXAM - Constitutional General appearance: Present: cooperative WF A&O with occasional memory lapses pleasant, no acute distress, Cachectic, answers questions appropriately mild HUGHES - Head Head exam: Present: atraumatic, normocephalic - Eye Eye exam: Present: PERRL, conjuntiva pink, sclera anicteric Pupils: Present: PERRL - Neck Neck exam general surgery: Present: supple, trachea midline. no mass palp - Respiratory Respiratory exam: Present: CTAB. Absent: accessory muscle use, rales, rhonchi, wheezes - Cardiovascular Cardiovascular exam: Present: RRR, +S1, +S2. Absent: diastolic murmur, gallop, rubs, systolic murmur - GI/Abdominal GI/Abdominal exam: Present: scaphoid normal bowel sounds, soft, no peritoneal signs. Absent: distended, tenderness - Extremities Exam Extremities exam: Present: warm, radial pulses palpable and symmetrical. Absent: calf tenderness, cyanotic, pedal edema - Neurological Exam Neurological exam: Present: CN II-XII intact, - Skin Skin exam: Present: dry, intact large scars to chest and abd intact - Constitutional Vitals: Temp Pulse Resp BP Pulse Ox 99.0 F 65 14 105/52 99 10/02/18 19:11 10/02/18 19:11 10/02/18 19:11 10/02/18 19:11 10/02/18 19:11 General appearance: Present: cooperative, A&O X 3, pleasant, no acute distress, underweight, answers questions appropriately Internal Medicine: Result - Labs CBC & Chem 7: 10/01/18 05:15 10/01/18 05:15 Consult Discharge Plan - Plan Referrals: Mu Smith, FLY FINISHER [Primary Care Provider] -
--- NOTE | 2018-10-02 20:49 | Internal Med Progress Note ---
Date of Encounter: 10/02/18 Time of Encounter: 17:30 - Subjective Interval history: - Assessment and plan (1) Diastolic CHF, acute on chronic Current Visit: Yes Status: Chronic Assessment and plan: Pt was volume contracted yesterday feels improved today had high volume diarrhea and had yesterday systolic bp low in mid 70s did get 500 cc NS once and felt better did decrease her q 8 hr nitropast to 1/2 inch may DC nitropaste as tolerated pt is not having CP today pt continues on her PO long acting nitrate at 30 mg and her dig and cardizem will decrease lisinopril from 40 to 20 mg continue to monitor if diarrhea resolves off of augmentin, will change lisinopril back to 40 mg (2) Type 2 diabetes mellitus Current Visit: Yes Status: Chronic Assessment and plan: No acute issues. Patient's glucose have been within normal limits on labs. We will continue with current medications. Qualifiers: Diabetes mellitus terminal gauger supervisor insulin use: without long-term use Diabetes mellitus complication status: without complication Qualified Code(s): E11.9 - Type 2 diabetes mellitus without complications (3) COPD (chronic obstructive pulmonary disease) Current Visit: Yes Status: Chronic Assessment and plan: No acute issues. Lungs are clear throughout upper morrow with diminished bases. No productive cough. Patient does become dyspneic with minimal effort. We will continue with current medications and bronchodilators. Qualifiers: COPD type: unspecified COPD Qualified Code(s): J44.9 - Chronic obstructive pulmonary disease, unspecified (4) CAD (coronary artery disease) Current Visit: Yes Status: Chronic Qualifiers: Coronary Disease-Associated Artery/Lesion type: [place] artery [place] vs. transplanted heart: [place] heart Associated angina: without angina Qualified Code(s): I25.10 - Atherosclerotic heart disease of [place] coronary artery without angina pectoris stable BP lower will decrease her q 8 hr nitropast to 1/2 inch may DC as tolerated pt continues on her PO long acting nitrate at 30 mg and her dig and cardizem will decrease lisinopril from 40 o 20 mg (5) Pneumonia Current Visit: Yes Status: Acute Assessment and plan: . Pneumonia resolved Did DC augmentin if further antbx needed will choose alternative Lungs with diminished bases but otherwise clear. No productive cough. Has been afebrile. We will continue with current plan of care Qualifiers: Pneumonia type: due to unspecified organism Laterality: unspecified laterality Lung location: unspecified part of lung Qualified Code(s): J18.9 - Pneumonia, unspecified organism (6) Hyperthyroidism Current Visit: Yes Status: Acute Assessment and plan: No acute issues. Patient continues on methimazole 40mg daily for hyperthyroidism. Most recent TSH was <0.010. 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 manager revenue - consider if pt would be candidate for other thyroid treatments (7) Chest pain Current Visit: Yes Status: Resolved Assessment and plan: Patient currently denies CP her blood pressure is running lower today Qualifiers: Chest pain type: intercostal pain Qualified Code(s): R07.82 - Intercostal pain - Time Spent With Patient less than 15 minutes - Subjective Interval history: PT has yesterday reported two episodes of high volume watery diarrhea had been on augmentin - did DC this yesterday pt reports today no diarrhea eating better feels better she states she has had several surgeries reports that her first major surgery was gastric bypass surgery says she weighed about 370 pound when had surgery thinks in 2002 says after that she lost about 70 pound but had dumping sydrome and frequent nausea some vomiting if things got stuck says she had many abd surgeries besides that including esther and total hysterectomy says she continued to loose weight but says after her she lost a lot of weight EXAM - Constitutional General appearance: Present: cooperative WF A&O with occasional memory lapses pleasant, no acute distress, Cachectic, answers questions appropriately mild [place] - Head Head exam: Present: atraumatic, normocephalic - Eye Eye exam: Present: PERRL, conjuntiva pink, sclera anicteric Pupils: Present: PERRL - Neck Neck exam general surgery: Present: supple, trachea midline. no mass palp - Respiratory Respiratory exam: Present: CTAB. Absent: accessory muscle use, rales, rhonchi, wheezes - Cardiovascular Cardiovascular exam: Present: RRR, +S1, +S2. Absent: diastolic murmur, gallop, rubs, systolic murmur - GI/Abdominal GI/Abdominal exam: Present: scaphoid normal bowel sounds, soft, no peritoneal signs. Absent: distended, tenderness - Extremities Exam Extremities exam: Present: warm, radial pulses palpable and symmetrical. Absent: calf tenderness, cyanotic, pedal edema - Neurological Exam Neurological exam: Present: CN II-XII intact, - Skin Skin exam: Present: dry, intact large scars to chest and abd intact - Constitutional Vitals: Temp Pulse Resp BP Pulse Ox 99.0 F 65 14 105/52 99 10/02/18 19:11 10/02/18 19:11 10/02/18 19:11 10/02/18 19:11 10/02/18 19:11 General appearance: Present: cooperative, A&O X 3, pleasant, no acute distress, underweight, answers questions appropriately Internal Medicine: Result - Labs CBC & Chem 7: 10/01/18 05:15 10/01/18 05:15 Consult Discharge Plan - Plan Referrals: Mu Smith, BLOOD BANK TECHNICIAN [Primary Care Provider] -
[2018-10-02] MEDS ORDERED: NON-FORMULARY MEDICATION 1 EACH EACH (Alendronate Sodium [Fosamax] 70 MG) PO SCH (21:49)
[2018-10-03] MEDS: Nitroglycerin 1 INCH/GM PACKET TP SCH (05:17)
[2018-10-03 05:27] LABS: Basophils % 0.8 %; Eosinophils # 0.2 K/mcL (0.0-0.6); Eosinophils % 4.5 %; Hematocrit 36.5 % (35.3-44.9); Hemoglobin 11.7 g/dL (11.5-15.4); Lymphocytes # 1.2 K/mcL (0.6-4.6); Lymphocytes % 24.4 %; Mean Corpuscular HGB Conc 32.1 g/dL (31.6-35.5); Mean Corpuscular Volume 90.6 fL (83.0-100.0); Mean Platelet Volume 11.4 fL (9.4-12.4); Monocytes # 0.5 K/mcL (0.0-1.3); Monocytes % 9.6 %; Platelet Count 209 K/mcL (140-400); Red Blood Count 4.03 M/mcL (3.82-4.97); Red Cell Distribution Width 16.5 % (11.5-14.5); Segmented Neutrophils % 60.7 %
[2018-10-03 05:38] LABS: Alanine Aminotransferase 25 Units/L (7-52); Albumin 2.9 g/dL (3.5-5.7); Albumin/Globulin Ratio 0.7 (1.1-2.2); Alkaline Phosphatase 290 Units/L (34-104); Aspartate Amino Transferase 45 Units/L (13-39); BUN/Creatinine Ratio 55 (6-26); Bilirubin,Total 0.9 mg/dL (0.3-1.0); Blood Urea Nitrogen 21 mg/dL (8-23); Calcium 8.8 mg/dL (8.6-10.3); Carbon Dioxide 29 mEq/L (23-29); Chloride 102 mEq/L (98-107); Globulin 4.1 g/dL (2.4-3.5); Glucose 102 mg/dL (70-105); Osmolality,Calculated 281 (280-300); Potassium 4.5 mEq/L (3.5-5.1); Sodium 134 mEq/L (136-145); eGFR For Non-African Americans > 60 (> 60)
[2018-10-03] MEDS: Apixaban 5 MG TABLET PO SCH ×2 (09:24→21:09)
[2018-10-03] MEDS: Venlafaxine XR (24 HR) 75 MG CAP.ER.24H PO SCH (09:24)
[2018-10-03] MEDS: Lactobacillus 1 EACH CAP.SPRINK PO SCH (09:24)
[2018-10-03] MEDS: Diltiazem CD (24hr) 120 MG CAPSULE PO SCH (09:24)
[2018-10-03] MEDS: Furosemide 20 MG TABLET PO SCH ×2 (09:24→21:09)
[2018-10-03] MEDS: Isosorbide MONOnitrate (24 HR) 30 MG TAB.ER.24H PO SCH (09:25)
[2018-10-03] MEDS: *HR* Digoxin 0.125 MG TABLET PO SCH (09:25)
[2018-10-03] MEDS: Pregabalin 50 MG CAPSULE PO SCH ×2 (09:25→21:09)
[2018-10-03] MEDS: Aspirin 325 MG TABLET PO SCH (09:25)
[2018-10-03] MEDS: Bumetanide 1 MG TABLET PO SCH (09:26)
[2018-10-03] MEDS: methIMAzole 5 MG TABLET PO SCH (09:53)
[2018-10-03] MEDS: traMADol 50 MG TABLET PO PRN ×2 (09:53→19:23)
--- NOTE | 2018-10-03 10:51 | Internal Med Progress Note ---
Addendum entered and electronically signed by Marvin Lee MD 10/03/18 12:52: I have personally performed a face to face evaluation on this patient. I have r eviewed and agree with the care plan. History and Exam by me shows: Patient is feeling dizzy. Actually, she says "my head is swimming." Because of this, she was checked over the weekend and again today and found have low blood pressure. Her medications were held and varied for this. Now, her blood pressure is actually in the moderately high range. She has no nystagmus or other symptoms of vertigo including no nausea, dizziness, presyncope, etc. Therapy was held this morning for this reason and we will try this afternoon to resume therapies. She has apparently been in regular rhythm, throughout the weekend and she is regular today. She denies chest discomfort except in the low abdomen with pressure or deep breaths. Breathing is okay "except without my oxygen." O2 saturation is always been in the high 90s. She has used little Xanax. She has needed no nitroglycerin. She states her bowels are still soft but they have improved since she stopped using the injury. She has some signs of delirium which persist. For instance, she states that her dog is a cross between 2 wall and remained ear. She also has mislabeled me her "boyfriend." Her daughter, Angely, his been of great concern in that they are in consistencies in her story and her discussion about her relationship with her daughter. Discussed care with other providers and/or nursing. Patient has no complaint of chest discomfort, dyspnea, orthopnea, palpitations, nausea or vomiting, constipation or diarrhea, other changes in bowel habits, difficulty with urination, rash or itching, or other new complaints, except as mentioned above. Review of systems is otherwise negative. Examination: (Except as mentioned above): General: In no apparent distress. Alert and oriented 3. Nondiaphoretic. Head: Atraumatic and normocephalic. Respiratory: No use of accessory muscles. Lungs are clear throughout. Normal airflow. Cardiovascular: Regular rate and rhythm without murmur appreciated. Abdomen: Bowel sounds are normal. No hepatosplenomegaly mass or tenderness appreciated. Patient is examined upright in chair and this also limits exam. Extremities: No cyanosis, clubbing, or edema. Edema has totally resolved. Skin: Warm and non-diaphoretic with no new lesions noted. She may have been intravascularly depleted by the additional change in medication. For this reason, all medicines were held today and nitroglycerin and lisinopril were discontinued. We will follow her blood pressure and symptoms and see about increasing. Again, I think hypothyroidism is her main problem and we will try to reach endocrinology at [facility] about definitive treatment. She still has mildly elevated alkaline phosphatase and I think she should have an ultrasound in the next day or so. Original Note: Date of Encounter: 10/03/18 Time of Encounter: 10:49 - Assessment and plan (1) General weakness Current Visit: Yes Status: Acute Assessment and plan: Continue PT and OT. Will follow progress. (2) Hyperthyroidism Current Visit: Yes Status: Chronic Assessment and plan: Continue current medication. Will follow closely. (3) Anemia Current Visit: Yes Status: Chronic Assessment and plan: Stable. Will monitor labs. Hemoglobin 11.7 today. Qualifiers: Anemia type: iron deficiency Iron deficiency anemia type: unspecified iron deficiency Qualified Code(s): D50.9 - Iron deficiency anemia, unspecified (4) COPD (chronic obstructive pulmonary disease) Current Visit: Yes Status: Chronic Assessment and plan: Stable. Continue current medication. Qualifiers: COPD type: unspecified COPD Qualified Code(s): J44.9 - Chronic obstructive pulmonary disease, unspecified (5) Diastolic CHF, acute on chronic Current Visit: Yes Status: Chronic Assessment and plan: Controlled with current medication. Monitor. (6) CAD (coronary artery disease) Current Visit: Yes Status: Chronic Assessment and plan: Denies chest pain. Continue current medication. Qualifiers: Coronary Disease-Associated Artery/Lesion type: [place] artery [place] vs. transplanted heart: [place] heart Associated angina: without angina Qualified Code(s): I25.10 - Atherosclerotic heart disease of [place] coronary artery without angina pectoris (7) Afib Current Visit: Yes Status: Chronic Assessment and plan: Rate and rhythm stable. Continue eliguis Qualifiers: Atrial fibrillation type: chronic Qualified Code(s): I48.2 - Chronic atrial fibrillation (8) Chest pain Current Visit: Yes Status: Resolved Assessment and plan: denies chest pain at this time. will monitor. Qualifiers: Chest pain type: intercostal pain Qualified Code(s): R07.82 - Intercostal pain - Time Spent With Patient less than 15 minutes - Subjective Interval history: Patient currently resting in bed and on hold for therapy. Patient was complaining of dizziness and had hypotension yesterday. Lisinopril was discontinued as well as Nitro paste. Patient states dizziness has resolved and not complaining of chest pain. No shortness of breath, fever, chills, nausea vomiting. Patient has had chronic diarrhea. Trying to maintaining appetite and hydration. - Constitutional Vitals: Temp Pulse Resp BP Pulse Ox 98.0 F 55 14 111/55 99 10/03/18 07:28 10/03/18 07:28 10/03/18 07:28 10/03/18 07:28 10/03/18 07:28 General appearance: Present: cooperative, A&O X 3, pleasant, no acute distress, underweight, answers questions appropriately - Head Head exam: Present: atraumatic, normocephalic - Eye Eye exam: Present: PERRL, conjuntiva pink, sclera anicteric Pupils: Present: PERRL - Neck Neck exam general surgery: Present: supple, trachea midline. Absent: lymphadenopathy - Respiratory Respiratory exam: Present: CTAB. Absent: accessory muscle use, rales, rhonchi, wheezes - Cardiovascular Cardiovascular exam: Present: RRR, +S1, +S2. Absent: diastolic murmur, gallop, rubs, systolic murmur - GI/Abdominal GI/Abdominal exam: Present: normal bowel sounds, soft, no peritoneal signs. Absent: distended, tenderness - Extremities Exam Extremities exam: Present: warm, radial pulses palpable and symmetrical. Absent: calf tenderness, cyanotic, pedal edema - Neurological Exam Neurological exam: Present: CN II-XII intact, oriented X3, no focal deficits. Absent: pronater drift, facial droop, speech deficit - Skin Skin exam: Present: dry, intact Internal Medicine: Result - Labs CBC & Chem 7: 10/03/18 05:05 10/03/18 05:05 Labs: Short CBC 10/03/18 Range/Units 05:05 WBC 4.9 (4.3-11.1) K/mcL Hgb 11.7 (11.5-15.4) g/dL Hct 36.5 (35.3-44.9) % Plt Count 209 (140-400) K/mcL Neutrophils # 3.0 (1.6-8.9) K/mcL BMP 10/03/18 05:05 Sodium 134 L Potassium 4.5 Chloride 102 Carbon Dioxide 29 BUN 21 Creatinine 0.38 L Glucose 102 Calcium 8.8 Liver Function 10/03/18 Range/Units 05:05 Total Bilirubin 0.9 (0.3-1.0) mg/dL AST 45 H (13-39) Units/L ALT 25 (7-52) Units/L Alkaline Phosphatase 290 H (34-104) Units/L Albumin 2.9 L (3.5-5.7) g/dL Consult Discharge Plan - Plan Referrals: Mu Smith, ENVIRONMENTAL RESEARCH SCIENTIST [Primary Care Provider] -
[2018-10-03] MEDS: Lisinopril 20 MG TABLET PO SCH (13:45)
[2018-10-03] MEDS ORDERED: Nitroglycerin 0.4 MG TAB.SUBL SL PRN (15:27)
[2018-10-04 07:11] LABS: Thyroid Stimulating Hormone < 0.010 mcIU/mL (0.340-5.600)
[2018-10-04] MEDS: *HR* Digoxin 0.125 MG TABLET PO SCH (08:48)
[2018-10-04] MEDS: Isosorbide MONOnitrate (24 HR) 30 MG TAB.ER.24H PO SCH (08:48)
[2018-10-04] MEDS: Aspirin 325 MG TABLET PO SCH (08:48)
[2018-10-04] MEDS: Furosemide 20 MG TABLET PO SCH ×2 (08:48→20:28)
[2018-10-04] MEDS: Venlafaxine XR (24 HR) 75 MG CAP.ER.24H PO SCH (08:48)
[2018-10-04] MEDS: Apixaban 5 MG TABLET PO SCH ×2 (08:48→20:28)
[2018-10-04] MEDS: Pregabalin 50 MG CAPSULE PO SCH ×2 (08:48→20:28)
[2018-10-04] MEDS: methIMAzole 5 MG TABLET PO SCH (08:48)
[2018-10-04] MEDS: Lactobacillus 1 EACH CAP.SPRINK PO SCH (08:48)
[2018-10-04] MEDS: traMADol 50 MG TABLET PO PRN ×3 (08:48→23:18)
[2018-10-04] MEDS: Diltiazem CD (24hr) 120 MG CAPSULE PO SCH (08:48)
--- NOTE | 2018-10-04 10:38 | Internal Med Progress Note ---
Addendum entered and electronically signed by Marvin Lee MD 10/04/18 12:26: I have personally performed a face to face evaluation on this patient. I have r eviewed and agree with the care plan. History and Exam by me shows: Patient is having 10 out of 10 chest pain at her right lower chest and in her right breast. This is been going on for the last little while and worsened as the morning went on. There is no shortness of breath or associated cough, injury, etc. Therapy apparently feels that she is not able to participate adequately and so we will need to look at ECF placement or [id number] care at home. services program manager aware and will talk to family. I spoke at length on [address] Mahajan. She is an endocrinology fellow at [employer] and expresses concern that patient is getting an adequate care. She states that patient frequently has not shown up for appointments and they have been concerned so they have kept her on and their patient population. She states that her daughter has not kept appointments are communicated with them, either. Initially, she said a thyroid scan and uptake would be necessary to calculate the dose. Because of the patient's noncompliance and ongoing problems that I explained to her, they would simply perform a dose calculation and try to get her a dose of radioactive iodine. They set up with an add on appointment with her October 17 we will need to arrange communication and transportation whether she is here or at another facility or at home. She gave me her fax number which I provided to nursing and they will send lab from today, to her. 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 I agreed stating that this plus medication may have had something to do with it. Of note, the patient stated this morning "I do not know why it took him 2 years to get this under control." Discussed care with other providers and/or nursing. Patient has no complaint of chest discomfort, dyspnea, orthopnea, palpitations, nausea or vomiting, constipation or diarrhea, other changes in bowel habits, difficulty with urination, rash or itching, or other new complaints, except as mentioned above. Review of systems is otherwise negative. Examination: (Except as mentioned above): General: In no apparent distress. Alert and oriented 3. Nondiaphoretic. Head: Atraumatic and normocephalic. Respiratory: No use of accessory muscles. She actually has improved airflow but still diminished at bases. There is left basilar rales, noted. She has no rubs or pleuritic sounds. She has marked tenderness at the right anterior costochondral junction and costal margin. Cardiovascular: Irregularly irregular with a faster heart rate. Abdomen: Bowel sounds are normal. No hepatosplenomegaly mass or tenderness appreciated. Patient is examined upright in chair and this also limits exam. Extremities: No cyanosis clubbing or edema. There is no cord or calf tenderness. Skin: Warm and non-diaphoretic with no new lesions noted. EKG shows atrial fibrillation with a rate of 109. There are also diffuse ST and T-wave changes which might be digitalis effect. Of note, her dig level was 0.4, yesterday. We will obtain a chest x-ray to verify that she has no pleural change but I think this is costochondritis. She is already have thyroid lab this morning but we will make sure that her CBC is not worsening and chest x-ray is not changed, to assess whether the pleural effusion has not turned into empyema. Original Note: Date of Encounter: 10/04/18 Time of Encounter: 10:36 - Assessment and plan (1) General weakness Current Visit: Yes Status: Acute Assessment and plan: Continue PT and OT. Will follow progress. (2) Hyperthyroidism Current Visit: Yes Status: Chronic Assessment and plan: Continue current medication. Will follow closely. (3) Anemia Current Visit: Yes Status: Chronic Assessment and plan: Stable. Will monitor labs. Hemoglobin 11.7 yesterday. Qualifiers: Anemia type: iron deficiency Iron deficiency anemia type: unspecified iron deficiency Qualified Code(s): D50.9 - Iron deficiency anemia, unspecified (4) COPD (chronic obstructive pulmonary disease) Current Visit: Yes Status: Chronic Assessment and plan: Stable. Continue current medication. Qualifiers: COPD type: unspecified COPD Qualified Code(s): J44.9 - Chronic obstructive pulmonary disease, unspecified (5) Diastolic CHF, acute on chronic Current Visit: Yes Status: Chronic Assessment and plan: Controlled with current medication. Monitor. (6) CAD (coronary artery disease) Current Visit: Yes Status: Chronic Assessment and plan: Denies chest pain. Continue current medication. Qualifiers: Coronary Disease-Associated Artery/Lesion type: [place] artery [place] vs. transplanted heart: [place] heart Associated angina: without angina Qualified Code(s): I25.10 - Atherosclerotic heart disease of [place] coronary artery without angina pectoris (7) Afib Current Visit: Yes Status: Chronic Assessment and plan: Rate and rhythm stable. Continue eliquis Qualifiers: Atrial fibrillation type: chronic Qualified Code(s): I48.2 - Chronic atrial fibrillation (8) Chest pain Current Visit: Yes Status: Resolved Assessment and plan: denies chest pain at this time. will monitor. Qualifiers: Chest pain type: intercostal pain Qualified Code(s): R07.82 - Intercostal pain - Time Spent With Patient 25 - 35 minutes - Subjective Interval history: participating with therapy. no hypotension episodes yet today. Lisinopril was discontinued as well as Nitro paste. continues to report dizziness. not complaining of chest pain. No shortness of breath, fever, chills, nausea vomiting. Patient has had chronic diarrhea. Trying to maintaining appetite and hydration. - Constitutional Vitals: Temp Pulse Resp BP Pulse Ox 98.3 F 75 18 153/83 100 10/04/18 09:00 10/04/18 09:00 10/04/18 09:00 10/04/18 09:00 10/04/18 09:00 General appearance: Present: cooperative, A&O X 3, pleasant, no acute distress, underweight, answers questions appropriately - Head Head exam: Present: atraumatic, normocephalic - Eye Eye exam: Present: PERRL, conjuntiva pink, sclera anicteric Pupils: Present: PERRL - Neck Neck exam general surgery: Present: supple, trachea midline. Absent: lymphadenopathy - Respiratory Respiratory exam: Present: CTAB. Absent: accessory muscle use, rales, rhonchi, wheezes - Cardiovascular Cardiovascular exam: Present: irregular rhythm, +S1, +S2. Absent: diastolic murmur, gallop, rubs, systolic murmur Additional comments: apical pulse 84 - GI/Abdominal GI/Abdominal exam: Present: normal bowel sounds, soft, no peritoneal signs. Absent: distended, tenderness - Extremities Exam Extremities exam: Present: warm, radial pulses palpable and symmetrical. Absent: calf tenderness, cyanotic, pedal edema - Neurological Exam Neurological exam: Present: CN II-XII intact, oriented X3, no focal deficits. Absent: pronater drift, facial droop, speech deficit - Skin Skin exam: Present: dry, intact Internal Medicine: Result - Labs CBC & Chem 7: 10/03/18 05:05 10/03/18 05:05 Consult Discharge Plan - Plan Referrals: Mu Smith, FURNACE REPAIRER HELPER [Primary Care Provider] -
[2018-10-04 11:44] LABS: ABG Base Excess 3 mEq/L (-2 to 3); ABG HCO3 28 mEq/L (21-27); ABG Oxygen Saturation 99 % (95-98); ABG PCO2 41 mmHg (35-45); ABG PH 7.43 pH Units (7.32-7.45); ABG PO2 130 mmHg (85-104); ABG TCO2 29 mEq/L (20-26)
[2018-10-04] MEDS ORDERED: *HR* Digoxin 0.125 MG TABLET PO ONE (13:05)
[2018-10-04 13:16] LABS: Basophils # 0.1 K/mcL (0.0-0.2); Basophils % 0.9 %; Eosinophils # 0.1 K/mcL (0.0-0.6); Eosinophils % 1.4 %; Hemoglobin 12.4 g/dL (11.5-15.4); Immature Granulocytes % 0.3 % (0-4); Lymphocytes # 1.2 K/mcL (0.6-4.6); Lymphocytes % 17.5 %; Mean Corpuscular HGB Conc 31.8 g/dL (31.6-35.5); Mean Corpuscular Hemoglobin 28.8 pg (28.0-33.3); Mean Corpuscular Volume 90.5 fL (83.0-100.0); Mean Platelet Volume 11.3 fL (9.4-12.4); Monocytes # 0.4 K/mcL (0.0-1.3); Monocytes % 6.4 %; Neutrophils # 5.1 K/mcL (1.6-8.9); Platelet Count 265 K/mcL (140-400); Red Blood Count 4.31 M/mcL (3.82-4.97); Red Cell Distribution Width 16.3 % (11.5-14.5); Segmented Neutrophils % 73.5 %
--- NOTE | 2018-10-04 14:45 | Electrocardiograph Report ---
[address] [place] [address] Test Date: 2018-09-28 Pat Name: Jeff Dobbins Department: 2001 Room: 115 Gender: Photolithographer: Jenae : 1955 Requested By: Marvin Lee Order Number: [id number] Reading MD: Haroldo Jennings Measurements Intervals [place] Rate: 44 P: [place]: 0 QRS: 6 QRSD: 89 T: 154 QT: 460 QTc: 412 Interpretive Statements JUNCTIONAL RHYTHM ST DEVIATION AND MODERATE T-WAVE ABNORMALITY, CONSIDER ANTEROLATERAL ISCHEMIA [- 0.1+ mV T WAVE IN V3-V6] Electronically Signed On 10-04-2018 14:43:43 EST by Haroldo Jennings
--- NOTE | 2018-10-04 16:21 | Electrocardiograph Report ---
[address] [place], [place] [address] Test Date: 2018-10-04 Pat Name: Jeff Dobbins Department: 2001 Room: 115 Gender: Lace Roller: : 1955 Requested By: Marvin Lee Order Number: [id number] Reading MD: Janet Rodriguez Measurements Intervals [place] Rate: 109 P: [place]: 0 QRS: 33 QRSD: 85 T: 244 QT: 315 QTc: 379 Interpretive Statements ATRIAL FIBRILLATION WITH RAPID VENTRICULAR RESPONSE ST DEVIATION AND MODERATE T-WAVE ABNORMALITY, CONSIDER LATERAL ISCHEMIA [-0.1+ mV T WAVE IN I/aVL/V5/V6] Electronically Signed On 10-04-2018 16:19:34 EST by Janet Rodriguez
[2018-10-05] MEDS: traMADol 50 MG TABLET PO PRN ×3 (06:07→21:15)
[2018-10-05] MEDS: Venlafaxine XR (24 HR) 75 MG CAP.ER.24H PO SCH (09:17)
[2018-10-05] MEDS: Pregabalin 50 MG CAPSULE PO SCH ×2 (09:17→21:15)
[2018-10-05] MEDS: Apixaban 5 MG TABLET PO SCH ×2 (09:17→21:14)
[2018-10-05] MEDS: Aspirin 325 MG TABLET PO SCH (09:17)
[2018-10-05] MEDS: *HR* Digoxin 0.25 MG TABLET PO SCH (09:17)
[2018-10-05] MEDS: Diltiazem CD (24hr) 120 MG CAPSULE PO SCH (09:17)
[2018-10-05] MEDS: Furosemide 20 MG TABLET PO SCH ×2 (09:18→21:15)
[2018-10-05] MEDS: Isosorbide MONOnitrate (24 HR) 30 MG TAB.ER.24H PO SCH (09:18)
[2018-10-05] MEDS: Lactobacillus 1 EACH CAP.SPRINK PO SCH (09:18)
--- NOTE | 2018-10-05 11:13 | Psychological Evaluation ---
Date of Encounter: 10/05/18 Time of Encounter: 10:15 History of Present Illness History of present illness: Ms. Dobbins is a 63 year old female admitted to rehab unit from [facility] for deconditioning or weakness due to CAD, and hyperthyroidism. past medical hx includes: CAD, CABG 3 vessel with 9 stents, a fib (currently on apixaban), CHF, COPD, hyperlipidemia, hypertension, osteoarthritis. Patient had gastric bypass in 1999. Patient originally presented to [facility] with complaints of chest pain, palpitations and shortness of breath. She was found to be in a fib with RVR. Also found have pulmonary vascular congestion with moderate bilateral pleural effusions. Patient was diuresed and cardiology consulted and increased Cardizem. 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 - Psychiatric History Psychiatric history: Reports: depression Additional Psychiatric History: Pt has never been involved in counseling. She has been given medication for anxiety and depression over the years after the loss of her son 2014. She stated, currently she does not take her Xanax as prescribed because it makes her "loopy". She further noted 2 other deaths since 2014 - 04/2017 and twin sister 06/2018. Home Medications and Allergies ALPRAZolam [Xanax 0.5 MG Tablet] 0.5 mg PO TID 02/10/18 [History] Aspirin 325 mg PO DAILY 02/10/18 [History] Bumetanide [Bumex] 1 mg PO DAILY 02/10/18 [History] Digoxin [Lanoxin] 0.125 mg PO DAILY 02/10/18 [History] Ferrous Sulfate [Iron] 325 mg PO Q48H 02/10/18 [History] Furosemide [Lasix] 20 mg PO BID 02/10/18 [History] Isosorbide MONOnitrate (24 HR) [Imdur] 30 mg PO DAILY 02/10/18 [History] Lisinopril [Zestril] 40 mg PO DAILY 02/10/18 [History] Nitroglycerin [Nitrostat] 0.4 mg SL Q5M PRN 02/10/18 [History] Pregabalin [Lyrica] 75 mg PO BID 02/10/18 [History] Simvastatin [Zocor] 20 mg PO HS 02/10/18 [History] methIMAzole [Methimazole] 40 mg PO DAILY 02/10/18 [History] Apixaban [Eliquis] 5 mg PO BID #60 tablet 02/12/18 [Rx] Diltiazem CD (24hr) [Cardizem CD] 120 mg PO DAILY #30 cap.er.24h 02/12/18 [Rx] Amitriptyline [Elavil] 25 mg PO HS 03/08/18 [History] Venlafaxine HCl [Venlafaxine HCl ER] 75 mg PO DAILY 03/08/18 [History] Lactobacillus [Culturelle] 1 each PO DAILY #90 cap.sprink 05/25/18 [Rx] Alendronate Sodium [Fosamax] 70 mg PO GUERRIER 09/23/18 [History] Oxycodone HCl [Roxybond] 5 mg PO BID PRN 09/23/18 [History] Amoxicillin/Clavulanate [Augmentin] 875 mg PO BIDWM #8 tablet 09/27/18 [Rx] Allergy/AdvReac Type Severity Reaction Status Date / Time hydrocodone [From Vicodin] Allergy Swelling Verified 09/27/18 19:34 of Lip/Tongue/Throat morphine AdvReac Rash Verified 09/27/18 19:34 Social History - Social History Social History: Lives alone but stays at daughters when need be. She has been with her daughter prior to this hospitalization. She is after 1 marriage. She has 8 children (7 step). She has numerous grandchildren (great/great great). 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 - Tobacco Use Smoking Status: Never smoker - Alcohol Use Alcohol Use: none - Drug Use Drug Use: none Cognitive/Emotional Assessment - Cognitive Ability Language Function Ability: No Deficits Noted Verbal Communication Ability: Conversational Style Level of Alertness: Alert Memory Description: Short Term Intact Orientation: Person, Place, Name, Age, Date of , Day of Month, Day of Week, Month, Year, Time of Day Ability to Follow Directions: Good Speech Pattern: Normal rate Thought Process: Logical Additional Findings: Pt able to repeat 3/3 words with several repetitions due to hearing loss. Noted some confusion due to hearing loss. Able to recall 3/3 worsd 5min after presentation. Digits forward 5 and backward 3. Unable to correctly spell WORLD forward or backward. Knew pres, previous pres, and governor. Able to count backwards from 20 by 3 with cuing to stay on task- "minus 3". Unable to subtract $14.45 from $20.00 - $4.25. She is noted to need time to process and comprehend tasks and cuing to sustain attention. - Emotional Status Mood Description: Depressed Affect Description: Congruent with mood Additional Findings: Stated she struggles with depression when she is alone and sitting around home thus tries to keep busy with visiting friends and christian. Assessment & Plan - Diagnosis (1) MDD (major depressive disorder) Qualifiers: Major depression recurrence: recurrent Active/Remission status: currently active Major depression episode severity: severe Psychotic features: without psychotic features Qualified Code(s): F33.2 - Major depressive disorder, re current severe without psychotic features - Prognosis Prognosis: Good - Treatment Plan Treatment Plan/Recommendations: Will follow while inpatient to process losses and changes in physical functioning. Next Session Date: 10/12/18 Procedures - Participants Therapy Participant: Patient - Session Time Session Start Time: 10:15 Session Stop Time: 10:45
[2018-10-05] MEDS: methIMAzole 5 MG TABLET PO SCH (11:51)
--- NOTE | 2018-10-05 12:16 | Internal Med Progress Note ---
Addendum entered and electronically signed by Marvin Lee MD 10/05/18 14:04: I have personally performed a face to face evaluation on this patient. I have r eviewed and agree with the care plan. History and Exam by me shows: Patient admits to no problems, currently. However, upon further questioning and based on statements from therapy staff, she admits to chest palpitations. She states that it feels "like my heart is about to explode out of my chest." The pain from yesterday afternoon at her right lower chest which was pleuritic and worsening, has resolved. She was found to have a rapid irregular heartbeat and was up to 145 or 150. EKG showed atrial flutter with a rate of 112. She has her chronic ST changes consistent with digitalis effect or chronic strain. No ischemic changes. I spoke with Dr. Mahajan at [facility], endocrinology, who suggested that we arranged transfer if acceptable to her attending, Dr. Blair. She will let me know for sure. I will speak with the patient's daughter about transfer, as able. We discussed the patient and team meeting today and she has many inconsistent stories which might be disorientation, delirium, or her hard of hearing state. Discussed care with other providers and/or nursing. Patient has no complaint of chest discomfort, dyspnea, orthopnea, palpitations, nausea or vomiting, constipation or diarrhea, other changes in bowel habits, difficulty with urination, rash or itching, or other new complaints, except as mentioned above. Review of systems is otherwise negative. Examination: (Except as mentioned above): General: In no apparent distress. Alert and oriented 3. Nondiaphoretic. Head: Atraumatic and normocephalic. Respiratory: No use of accessory muscles. Lungs are clear throughout. Normal airflow. Cardiovascular: Regular rate and rhythm without murmur appreciated. Abdomen: Bowel sounds are normal. No hepatosplenomegaly mass or tenderness appreciated. Patient is examined upright in chair and this also limits exam. Extremities: There is no cyanosis or clubbing. The patient has no cord or calf tenderness. However, she has 1-2+ edema which is worse than yesterday. Nursing states that this is worse from this morning. Skin: Warm and non-diaphoretic with no new lesions noted. I still feel that her definitive treatment is radioactive iodine and that she needs to be evaluated for this, as quickly as possible. Dr. Mahajan agrees and this will be our plan presuming that we can get a bed for her at [facility]. The patient is aware and agrees with this plan and states that we do not need to involve her daughter's permission but that it is okay to tell her daughter what is going on with her. Original Note: Date of Encounter: 10/05/18 Time of Encounter: 12:14 - Assessment and plan (1) Atrial fibrillation with RVR Current Visit: Yes Status: Chronic Assessment and plan: Currently patient's heart rate shows atrial fibrillation with a ventricular rate of 100-120 her EKG that was obtained. Vital signs have remained stable. Patient states that she has experienced palpitations and slight dyspnea with minimal exertion. Patient's heart rate was noted to be at 140 immediately after physical therapy. He currently on Cardizem. Patient also with history of hyperthyroidism, which has been under treatment. We will discuss further with Dr. Lee.. (2) Diastolic CHF, acute on chronic Current Visit: Yes Status: Chronic Assessment and plan: Currently patient's heart rate has been elevated with atrial fibrillation. Vital signs have been stable Patient to continue have slight dyspnea with exertion, but respiratory effort is relaxed while at rest. Noted continued diminished breath sounds to basilar morrow. No productive cough. Most recent BNP showed 2086. Minimal pedal edema. We will continue with current medications. Patient to continue with physical therapy as tolerated. (3) Type 2 diabetes mellitus Current Visit: Yes Status: Chronic Assessment and plan: No acute issues. Patient's glucose have been within normal limits on labs. We will continue with current medications. 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 Lungs are clear throughout upper mor[place] with diminished bases. No productive cough. Patient does become dyspneic with minimal effort. We w ill continue with current medications and bronchodilators. Qualifiers: COPD type: unspecified COPD Qualified Code(s): J44.9 - Chronic obstructive pulmonary disease, unspecified (5) Hyperthyroidism Current Visit: Yes Status: Acute Assessment and plan: No acute issues. Patient continues on methimazole 40mg daily for hyperthyroidism. Most recent TSH was <0.010. - Time Spent With Patient less than 15 minutes - Subjective Interval history: Patient appears relaxed but noted to become winded during exertion while at physical therapy. Patient states she does experience palpitations this morning, but denies any chest pain. Patient denies any dyspnea while at rest. Nurse has reported patient has had a heart rate has been greater than 120 on vital signs. Patient remains afebrile - Constitutional Vitals: Temp Pulse Resp BP Pulse Ox 98.3 F 67 18 146/67 95 10/05/18 08:06 10/05/18 08:06 10/05/18 08:06 10/05/18 08:06 10/05/18 08:06 General appearance: Present: cooperative, A&O X 3, pleasant, no acute distress, underweight, answers questions appropriately - Head Head exam: Present: atraumatic, normocephalic - Eye Eye exam: Present: PERRL, conjuntiva pink, sclera anicteric Pupils: Present: PERRL - Neck Neck exam general surgery: Present: supple, trachea midline. Absent: lymphadenopathy - Respiratory Respiratory exam: Present: CTAB. Absent: accessory muscle use, rales, rhonchi, wheezes Additional comments: Patient noted to have slight dyspnea on exertion while at physical therapy. At rest patients respiratory effort appears relaxed. - Cardiovascular Cardiovascular exam: Present: irregular rhythm, RRR, +S1, +S2. Absent: d iastolic murmur, gallop, rubs, systolic murmur Additional comments: Patient's heart rate remains elevated with pulse difficult to palpate and B and thready. Apical pulse was at 140 immediately after performing exercises for physical therapy. EKG was obtained which shows atrial fibrillation at a rate of 105. No ventricular ectopy noted - GI/Abdominal GI/Abdominal exam: Present: normal bowel sounds, soft, no peritoneal signs. Ab sent: distended, tenderness - Extremities Exam Extremities exam: Present: warm, radial pulses palpable and symmetrical. Absent: calf tenderness, cyanotic, pedal edema - Neurological Exam Neurological exam: Present: CN II-XII intact, oriented X3, no focal deficits. Absent: pronater drift, facial droop, speech deficit - Skin Skin exam: Present: dry, intact Internal Medicine: Result - Labs CBC & Chem 7: 10/04/18 13:00 10/03/18 05:05 Labs: Short CBC 10/04/18 Range/Units 13:00 WBC 6.9 (4.3-11.1) K/mcL Hgb 12.4 (11.5-15.4) g/dL Hct 39.0 (35.3-44.9) % Plt Count 265 (140-400) K/mcL Neutrophils # 5.1 (1.6-8.9) K/mcL - ABG Interpretation ABG results: ABG ABG pH 7.43 pH Units (7.32-7.45) 10/04/18 11:41 ABG pCO2 41 mmHg (35-45) 10/04/18 11:41 ABG pO2 130 mmHg (85-104) H 10/04/18 11:41 ABG O2 Saturation 99 % (95-98) H 10/04/18 11:41 - Impressions Impressions Chest X-Ray 10/04/18 11:41 IMPRESSION: Small right pleural effusion, decreased. D/ / Tangela Kent MD / Tangela Kent MD Interpreting Provider: Tangela Kent MD Consult Discharge Plan - Plan Referrals: [facility], Endocrinology Clinic [Other] (Please arrive 10 minutes early for registrati on. ) Mu Smith, RN CLINICAL APPEALS [Primary Care Provider] -
--- NOTE | 2018-10-05 14:56 | Electrocardiograph Report ---
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
[2018-10-06] MEDS: traMADol 50 MG TABLET PO PRN ×2 (05:14→17:11)
[2018-10-06 05:30] LABS: Hematocrit 36.9 % (35.3-44.9); Mean Corpuscular HGB Conc 32.5 g/dL (31.6-35.5); Mean Corpuscular Volume 89.1 fL (83.0-100.0); Mean Platelet Volume 11.9 fL (9.4-12.4); Platelet Count 263 K/mcL (140-400); Red Blood Count 4.14 M/mcL (3.82-4.97); Red Cell Distribution Width 15.9 % (11.5-14.5)
[2018-10-06 05:52] LABS: Alanine Aminotransferase 37 Units/L (7-52); Albumin 3.2 g/dL (3.5-5.7); Albumin/Globulin Ratio 0.8 (1.1-2.2); Alkaline Phosphatase 354 Units/L (34-104); Aspartate Amino Transferase 55 Units/L (13-39); BUN/Creatinine Ratio 68 (6-26); Bilirubin,Total 0.9 mg/dL (0.3-1.0); Blood Urea Nitrogen 25 mg/dL (8-23); Calcium 9.1 mg/dL (8.6-10.3); Carbon Dioxide 30 mEq/L (23-29); Chloride 97 mEq/L (98-107); Globulin 4.2 g/dL (2.4-3.5); Glucose 78 mg/dL (70-105); Magnesium 2.1 mg/dL (1.6-2.6); Osmolality,Calculated 279 (280-300); Potassium 4.9 mEq/L (3.5-5.1); Sodium 133 mEq/L (136-145); Total Protein 7.4 g/dL (6.4-8.9); eGFR For Non-African Americans > 60 (> 60)
[2018-10-06] MEDS: Lactobacillus 1 EACH CAP.SPRINK PO SCH (08:43)
[2018-10-06] MEDS: Aspirin 325 MG TABLET PO SCH (08:43)
[2018-10-06] MEDS: Pregabalin 50 MG CAPSULE PO SCH (08:43)
[2018-10-06] MEDS: Bumetanide 1 MG TABLET PO SCH (08:43)
[2018-10-06] MEDS: Furosemide 20 MG TABLET PO SCH (08:43)
[2018-10-06] MEDS: Apixaban 5 MG TABLET PO SCH (08:43)
[2018-10-06] MEDS: methIMAzole 5 MG TABLET PO SCH (08:43)
[2018-10-06] MEDS: Venlafaxine XR (24 HR) 75 MG CAP.ER.24H PO SCH (08:43)
[2018-10-06] MEDS: Isosorbide MONOnitrate (24 HR) 30 MG TAB.ER.24H PO SCH (08:44)
[2018-10-06] MEDS: Diltiazem CD (24hr) 120 MG CAPSULE PO SCH (08:44)
[2018-10-06] MEDS: *HR* Digoxin 0.25 MG TABLET PO SCH (08:44)
--- NOTE | 2018-10-06 09:15 | Electrocardiograph Report ---
[place] [address] Test Date: 2018-10-05 Pat Name: Jeff Dobbins Department: 2001 Room: 115 Gender: F Financial Adviser: : 1955 Requested By: Willis Jimenez Order Number: [id number] Reading MD: Ken Aden Measurements Intervals [place] Rate: 105 P: [place]: 0 QRS: 28 QRSD: 85 T: -83 QT: 337 QTc: 398 Interpretive Statements Atrial fibrillation with rapid ventricular response ST DEVIATION AND MODERATE T-WAVE ABNORMALITY, CONSIDER ANTEROLATERAL ISCHEMIA [- 0.1+ mV T WAVE IN V3-V6] ST DEVIATION AND MODERATE T-WAVE ABNORMALITY, CONSIDER INFERIOR ISCHEMIA [-0.1+ mV T WAVE IN II/aVF] Electronically Signed On 10-06-2018 9:14:08 EST by Ken Aden
[2018-10-06 11:35] VITALS: BP 103/58
--- NOTE | 2018-10-06 12:59 | Internal Med Progress Note ---
Date of Encounter: 10/06/18 Time of Encounter: 12:57 - Assessment and plan (1) Atrial fibrillation with RVR Current Visit: Yes Status: Chronic Assessment and plan: Patient continues with an atrial fibrillation. Patient was started on low-dose beta césar yesterday and today her heart rate has decreased to 50-60. Patient's blood pressure has remained stable and she denies any near syncopal type symptoms. Denies any palpitations or chest discomforts. We will discontinue metoprolol at this time. We will discontinue physical therapy at this time until patient is more stable cardiac-peña. We will continue on Cardizem and continue to monitor patient's rhythm. We will place patient on cardiac monitoring. (2) Diastolic CHF, acute on chronic Current Visit: Yes Status: Chronic Assessment and plan: No acute issues at this time. With continued conduction issues, as noted above note. We will continue with current medications and continue to follow closely. (3) Type 2 diabetes mellitus Current Visit: Yes Status: Chronic Assessment and plan: No acute issues. Patient's glucose have been within normal limits on labs. We will continue with current medications. Qualifiers: Diabetes mellitus fdc insulin use: without fdc use Diabetes mellitus complication status: without complication Qualified Code(s): E11.9 - Type 2 diabetes mellitus without complications (4) COPD (chronic obstructive pulmonary disease) Current Visit: Yes Status: Chronic Assessment and plan: No acute issues. Lungs are clear throughout upper morrow with diminished bases. No productive cough. Patient does become dyspneic with minimal effort. We will continue with current medications and bronchodilators. Qualifiers: COPD type: unspecified COPD Qualified Code(s): J44.9 - Chronic obstructive pulmonary disease, unspecified (5) Hyperthyroidism Current Visit: Yes Status: Acute Assessment and plan: Patient continues on methimazole 40mg daily for hyperthyroidism. Most recent TSH this morning was <0.010. Patient continues to have conduction issues with her ventricular rate while in atrial fibrillation. We will continue to try to have patient transferred to [facility] for further evaluation and treatment per endocrinology. - Time Spent With Patient less than 15 minutes - Subjective Interval history: Patient appears relaxed currently denies any discomforts or shortness of breath. Patient denies any palpitations. Nurse reports patient's heart rate has been somewhat low at the low 60s. EKG was obtained which shows patient to continue to be in atrial fib/flutter with a ventricular rate between 50 and 60. Patient was started on metoprolol 25 mg twice a day yesterday. Blood pressure has been stable. Patient denies any dizziness or lightheadedness. Continues to deny any palpitations. Patient does complain of continued slight pain to her posterior right chest, which increases with deep inspiration or when repositioning. No obvious injury noted. - Constitutional Vitals: Temp Pulse Resp BP Pulse Ox 98.0 F 56 14 103/58 99 10/06/18 11:34 10/06/18 11:34 10/06/18 11:34 10/06/18 11:34 10/06/18 11:34 General appearance: Present: cooperative, A&O X 3, pleasant, no acute distress, underweight, answers questions appropriately - Head Head exam: Present: atraumatic, normocephalic - Eye Eye exam: Present: PERRL, conjuntiva pink, sclera anicteric Pupils: Present: PERRL - Neck Neck exam general surgery: Present: supple, trachea midline. Absent: lymphadenopathy - Respiratory Respiratory exam: Present: CTAB. Absent: accessory muscle use, rales, rhonchi, wheezes Additional comments: Complaints of sharp pain to right posterior chest flank. No rubs or crepitus heard. No obvious injury or deformity noted. - Cardiovascular Cardiovascular exam: Present: irregular rhythm, RRR, +S1, +S2, systolic murmur. Absent: diastolic murmur, gallop, rubs Additional comments: Patient's pulse is irregular at 50-60. Soft systolic murmur heard at left sternal border. - GI/Abdominal GI/Abdominal exam: Present: normal bowel sounds, soft, no peritoneal signs. Absent: distended, tenderness - Extremities Exam Extremities exam: Present: warm, radial pulses palpable and symmetrical. Absent: calf tenderness, cyanotic, pedal edema - Neurological Exam Neurological exam: Present: CN II-XII intact, oriented X3, no focal deficits. Absent: pronater drift, facial droop, speech deficit - Skin Skin exam: Present: dry, intact Internal Medicine: Result - Labs CBC & Chem 7: 10/06/18 04:42 10/06/18 04:42 Labs: Short CBC 10/06/18 Range/Units 04:42 WBC 5.2 (4.3-11.1) K/mcL Hgb 12.0 (11.5-15.4) g/dL Hct 36.9 (35.3-44.9) % Plt Count 263 (140-400) K/mcL BMP 10/06/18 04:42 Sodium 133 L Potassium 4.9 Chloride 97 L Carbon Dioxide 30 H BUN 25 H Creatinine 0.37 L Glucose 78 Calcium 9.1 Liver Function 10/06/18 Range/Units 04:42 Total Bilirubin 0.9 (0.3-1.0) mg/dL AST 55 H (13-39) Units/L ALT 37 (7-52) Units/L Alkaline Phosphatase 354 H (34-104) Units/L Albumin 3.2 L (3.5-5.7) g/dL - ABG Interpretation ABG results: ABG ABG pH 7.43 pH Units (7.32-7.45) 10/04/18 11:41 ABG pCO2 41 mmHg (35-45) 10/04/18 11:41 ABG pO2 130 mmHg (85-104) H 10/04/18 11:41 ABG O2 Saturation 99 % (95-98) H 10/04/18 11:41 - VTE Reasons for not Prescribing Prophylaxis: Treatment not Indicated - Low risk for VTE Consult Discharge Plan - Plan Referrals: [facility], Endocrinology Clinic [Other] (Please arrive 10 minutes early for registration. ) Mu Smith, BRAILLE CODER [Primary Care Provider] -
--- NOTE | 2018-10-11 17:17 | Electrocardiograph Report ---
[place] [id number] Test Date: 2018-10-06 Pat Name: Jeff Dobbins Department: 2001 Room: 115 Gender: F Tight Cooper: : 1955 Requested By: Marvin Lee Order Number: [id number] Reading MD: Janet Rodriguez Measurements Intervals [place] Rate: 51 P: [place]: 0 QRS: 14 QRSD: 88 T: 26 QT: 443 QTc: 420 Interpretive Statements ATRIAL FLUTTER/TACHYCARDIA WITH SLOW VENTRICULAR RESPONSE ST DEVIATION AND MODERATE T-WAVE ABNORMALITY, CONSIDER ANTERIOR ISCHEMIA [-0.1+ mV T WAVE IN V3/V4] Electronically Signed On 10-11-2018 17:15:39 EST by Janet Rodriguez
--- NOTE | 2018-10-13 13:42 | Discharge Summary ---
Date of Encounter: 10/13/18 Time of Encounter: 12:00 - Discharge Diagnosis (1) Atrial fibrillation with RVR Priority: Primary Status: Chronic (2) Diastolic CHF, acute on chronic Priority: Secondary Status: Chronic (3) Type 2 diabetes mellitus Priority: Secondary Status: Chronic Qualifiers: Diabetes mellitus custodial insulin use: without custodial use Diabetes mellitus complication status: without complication Qualified Code(s): E11.9 - Type 2 diabetes mellitus without complications (4) COPD (chronic obstructive pulmonary disease) Priority: Secondary Status: Chronic Qualifiers: COPD type: unspecified COPD Qualified Code(s): J44.9 - Chronic obstructive pulmonary disease, unspecified (5) Hyperthyroidism Priority: Secondary Status: Acute Hospital course: Ms. Dobbins is a 63 year old female, admitted to rehab unit from [facility] for deconditioning or weakness due to CAD, and hyperthyroidism. past medical hx includes: CAD, CABG 3 vessel with 9 stents, a fib (currently on apixaban), CHF, COPD, hyperlipidemia, hypertension, osteoarthritis. Patient had gastric bypass in 1999. Patient originally presented to [facility] with complaints of chest pain, palpitations and shortness of breath. She was found to be in a fib with RVR. Also found have pulmonary vascular congestion with moderate bilateral pleural effusions. Patient was diuresed and cardiology consulted and increased Cardizem. Patient is followed by [facility] endocrinology, Dr. Naty Mahajan for hyperthyroidism. She is taking methimazoe. Patient continues to be symptomatic with her HR remaining elevated >100 while at rest. Patient was medicated with a low dose beta césar, but it was discontinued after her HR dropped to 45-55 in Afib. She participated in PT/OT and states she is feeling stronger. Continues with off and on chest pain, states relieved with pain medication. Patient was evaluated by Cardiology at [place] for her chest pain and no cardiac issues were diagnosed. Plan is for patient to be transferred to [facility] for further evaluation of her hyperthyroidism by Endocrinology. Patient will be changed to a full medical admit and DC PT/OT for now. Will cont with current meds Discharge discussed with: patient Time spent discussing smoking cessation with patient: 3 to 10 minutes - Time Spent with Patient Total time spent providing and/or coordinating discharge services: Less than 30 minutes - Discharge Medications Home Medications: ALPRAZolam [Xanax 0.5 MG Tablet] 0.5 mg PO TID 02/10/18 [History] Aspirin 325 mg PO DAILY 02/10/18 [History] Bumetanide [Bumex] 1 mg PO DAILY 02/10/18 [History] Ferrous Sulfate [Iron] 325 mg PO Q48H 02/10/18 [History] Furosemide [Lasix] 20 mg PO BID 02/10/18 [History] Isosorbide MONOnitrate (24 HR) [Imdur] 30 mg PO DAILY 02/10/18 [History] Nitroglycerin [Nitrostat] 0.4 mg SL Q5M PRN 02/10/18 [History] Pregabalin [Lyrica] 75 mg PO BID 02/10/18 [History] Simvastatin [Zocor] 20 mg PO HS 02/10/18 [History] methIMAzole [Methimazole] 40 mg PO DAILY 02/10/18 [History] Apixaban [Eliquis] 5 mg PO BID #60 tablet 02/12/18 [Rx] Venlafaxine HCl [Venlafaxine HCl ER] 75 mg PO DAILY 03/08/18 [History] Lactobacillus [Culturelle] 1 each PO DAILY #90 cap.sprink 05/25/18 [Rx] Alendronate Sodium [Fosamax] 70 mg PO GUERRIER 09/23/18 [History] Amitriptyline [Elavil] 10 mg PO HS 14 Days #14 tablet 10/12/18 [Rx] Digoxin [Lanoxin] 0.25 mg PO DAILY 14 Days #14 tablet 10/12/18 [Rx] Diltiazem CD (24hr) [Cardizem CD] 180 mg PO DAILY 14 Days #14 cap.er.24h 10/12/18 [Rx] Famotidine [Pepcid] 20 mg PO BID 14 Days #28 tablet 10/12/18 [Rx] Lidocaine Patch [Lidoderm 5% patch] 1 each TP DAILY 7 Days #7 adh..patch 10/12/18 [Rx] methIMAzole [Tapazole] 30 mg PO BID 14 Days #28 tablet 10/12/18 [Rx] Allergies/Adverse Reactions: Allergy/AdvReac Type Severity Reaction Status Date / Time hydrocodone [From Vicodin] Allergy Swelling Verified 09/27/18 19:34 of Lip/Tongue/Throat morphine AdvReac Rash Verified 09/27/18 19:34 Date of admission: 09/27/18 21:04 Primary care physician: Mu Smith CNP Consults: 09/27/18 21:56 Consult to Physician President [CONS] Routine Reason for SW Consult: Discharge Planning 09/27/18 22:00 Consult to Physical Medicine/Rehab [CONS] Routine Reason for Consult: [place] for Rehab Call Completed: No 10/05/18 10:11 Consult to Psychology [CONS] Routine Consulting Provider: Romina Wilkins Reason for Consult: therapy request Call Completed: No Discharging clinician: Marvin Lee - Constitutional Vitals: Temp Pulse Resp BP Pulse Ox 98.0 F 58 14 103/58 99 10/06/18 11:34 10/06/18 17:08 10/06/18 11:34 10/06/18 11:34 10/06/18 11:34 General appearance: Present: cooperative, A&O X 3, pleasant, no acute distress, underweight, answers questions appropriately - Head Head exam: Present: atraumatic, normocephalic - Eye Eye exam: Present: PERRL, conjuntiva pink, sclera anicteric Pupils: Present: PERRL - Neck Neck exam general surgery: Present: supple, trachea midline. Absent: lymphadenopathy - Respiratory Respiratory exam: Present: CTAB. Absent: accessory muscle use, rales, rhonchi, wheezes - Cardiovascular Cardiovascular exam: Present: irregular rhythm, RRR, +S1, +S2. Absent: diastolic murmur, gallop, rubs, systolic murmur - GI/Abdominal GI/Abdominal exam: Present: normal bowel sounds, soft, no peritoneal signs. Absent: distended, tenderness - Extremities Exam Extremities exam: Present: warm, radial pulses palpable and symmetrical. Absent: calf tenderness, cyanotic, pedal edema - Neurological Exam Neurological exam: Present: CN II-XII intact, oriented X3, no focal deficits. Absent: pronater drift, facial droop, speech deficit - Skin Skin exam: Present: dry, intact - Patient Status Disposition: Transfer Other Condition: Fair Functional capacity at discharge: uses cane/walker Overall status at discharge: patient is progressing back to baseline - Discharge Instructions Follow Up With: [facility], Endocrinology Clinic [Other] (Please arrive 10 minutes early for registration. ) Mu Smith, [employer] [Primary Care Provider] - - Diet and Activity Activity: as per physical therapy, increase activity as tolerated Diet: low fat, low cholesterol, low salt diet - VTE Reasons for not Prescribing Prophylaxis: Treatment not Indicated - Low risk for VTE
== END 2018-10-06 17:51 | disposition other institution (70) | DRG 945 ==
LOC: INPGRE 21:04

== ENCOUNTER 2018-10-06 15:21 | Inpatient (IN) ==
[2018-10-06] MEDS ORDERED: ALPRAZolam 0.25 MG TABLET PO PRN (17:56)
[2018-10-06] MEDS ORDERED: Nitroglycerin 0.4 MG TAB.SUBL SL PRN (18:07)
[2018-10-06] MEDS: Pregabalin 50 MG CAPSULE PO SCH (21:59)
[2018-10-06] MEDS: Apixaban 5 MG TABLET PO SCH (21:59)
[2018-10-06] MEDS: Furosemide 20 MG TABLET PO SCH (22:00)
[2018-10-07] MEDS: traMADol 50 MG TABLET PO PRN ×2 (08:35→20:59)
[2018-10-07] MEDS: Lactobacillus 1 EACH CAP.SPRINK PO SCH (08:36)
[2018-10-07] MEDS: Aspirin 325 MG TABLET PO SCH (08:36)
[2018-10-07] MEDS: methIMAzole 5 MG TABLET PO SCH (08:36)
[2018-10-07] MEDS: *HR* Digoxin 0.25 MG TABLET PO SCH (08:36)
[2018-10-07] MEDS: Furosemide 20 MG TABLET PO SCH ×2 (08:36→20:59)
[2018-10-07] MEDS: Diltiazem CD (24hr) 120 MG CAPSULE PO SCH (08:36)
[2018-10-07] MEDS: Bumetanide 1 MG TABLET PO SCH (08:36)
[2018-10-07] MEDS: Venlafaxine XR (24 HR) 75 MG CAP.ER.24H PO SCH (08:36)
[2018-10-07] MEDS: Pregabalin 50 MG CAPSULE PO SCH ×2 (08:36→20:59)
[2018-10-07] MEDS: Isosorbide MONOnitrate (24 HR) 30 MG TAB.ER.24H PO SCH (08:36)
[2018-10-07] MEDS: Apixaban 5 MG TABLET PO SCH ×2 (08:36→21:00)
--- NOTE | 2018-10-07 15:15 | Internal Med History&Physical ---
Addendum entered and electronically signed by Abby Treviño 10/09/18 16:01: I have personally performed a face to face evaluation on this patient. I have reviewed and agree with the care plan. Original Note: Date of Encounter: 10/07/18 Time of Encounter: 15:10 Assessment and Plan (1) Atrial fibrillation with RVR Current visit: No Status: Chronic Patient continues with atrial fibrillation and has experienced episodes of RVR likely secondary to hyperthyroidism. Patient was initially treated with a beta césar, resulting in her heart rate being blocked down to 50-60. Patient's b eta césar was discontinued but again her heart rate increased to a set rate of 100-110 and would increase to 1:30 to 140 with minimal exertion. We will restart metoprolol at 12.5 mg every 12 when necessary for her heart rate greater than 110. We will hold patient's physical therapy at this time until her heart rate has stabilized. Patient has a long history of CHF and coronary artery disease. Patient also with a history of hyperthyroidism, which patient has a consult with endocrinology pending. Patient's blood pressure has been symptomatic to patient's heart rate with her current blood pressure at 100-110. We will continue patient on Cardizem 120 mg. Labs have been reviewed was no acute issues noted. We will repeat labs in the morning (2) COPD (chronic obstructive pulmonary disease) Current visit: Yes Status: Chronic No acute issues. Patient's lungs have been clear with diminished bases. No hypoxia. Respiratory effort appears relaxed while at rest. We will continue with current medications and bronchodilators. Qualifiers: COPD type: unspecified COPD Qualified Code(s): J44.9 - Chronic obstructive pulmonary disease, unspecified (3) Diastolic CHF, acute on chronic Current visit: Yes Status: Chronic No acute issues at this time. Patient with long history of CHF. Patient's most recent BNP was greater than 2000. Most recent echocardiogram was at 09/24/18. EF was 50%. We will continue with current medications. (4) Hyperthyroidism Current visit: No Status: Acute Patient continues with hyperthyroidism with TSH less than 0.010. Patient with consultation scheduled for October for treatment and evaluation. Patient currently with atrial fibrillation with RVR, most likely secondary to patient's hyperthyroidism. Patient also shows moderate weight loss with muscle wasting. We will continue to attempt to move about patient's consultation date for evaluation. Currently difficulty and a accepting physician at [facility] for transfer. Internal Medicine - H&P: HPI Chief complaint: Atrial fibrillation with RVR Admitted From: Hospital to Hospital Transfer Plans for Post Hospital Care: Home History of present illness: Ms. Dobbins is a 63 year old female , who was originally admitted to an [facility] was symptoms of exacerbation of CHF. Patient also with a history of hyperthyroidism, which she is currently awaiting a initial visit with an rental representative at [facility], but her consultation date has been and October. Patient was transferred to this facility for further rehabilitation due to her deconditioning secondary to her CHF. HF has been complicated with atrial fibrillation/flutter with RVR. Patient has been treated with Cardizem and a low-dose beta césar but has had difficulty tolerating the use of the beta césar as she will blocked down to a rate of 50-60, resulting and mild hypotension. Communication has been made with [facility] as far as having patient transferred here for further evaluation and treatment, but at this time has been difficulty having a excepting physician from endocrinology. Patient has had complaints of intermittent chest pain and complaints of palpitations with minimal activity. Patient's blood pressure continues to be symptomatic to her rate. At present patient's heart rate had increased to 110 and with minimal effort her heart rate increased to 1:30. Patient systolic blood pressure at that time was between 90 and 100. Patient had complaint of palpitations but denied dyspnea or discomforts at that time. Past Med Surg Social Fam HX - Past Medical History Medical history: arthritis, atrial fibrillation, CHF, COPD, coronary artery disease, CVA, GERD, hyperlipidemia, hypertension, myocardial infarction, osteoporosis, thyroid disease, other Additional medical history: PITTING EDEMA Psychiatric history: depression, other - Past Surgical History Surgical History: cholecystectomy, coronary bypass (CABG), hysterectomy, other Additional surgical history: Kidney stones - Social History Smoking Status: Never smoker Smokeless Tobacco Status: No Alcohol use: none Drug use: none - Family History Father Family Member Ethnicity: Non- Living Status: Hx Family Cardiac Disorders: Yes ([place]) Brother Family Member Ethnicity: Non- Living Status: Sister Family Member Ethnicity: Non- Twin of Family Member: Yes, Identical Living Status: Hx Family Cardiac Disorders: Yes ([place]) Hx Family Cancer: Yes (Colon) Mother Adopted: No Family Member Ethnicity: Non- Living Status: Hx Family Cardiac Disorders: No Hx Family Respiratory Disorders: No Hx Family Cancer: Yes Hx Family GI Disorders: Yes (Bowel Cancer) Hx Family Endocrine Disorder: Yes (DM) Hx Family Neuromuscular Disorders: No Hx Family Neurologic Disorders: No Hx Family HEENT Disorders: No Hx Family Autoimmune Disorders: No Internal Medicine - H&P: Meds ALPRAZolam [Xanax 0.5 MG Tablet] 0.5 mg PO TID 02/10/18 [History] Aspirin 325 mg PO DAILY 02/10/18 [History] Bumetanide [Bumex] 1 mg PO DAILY 02/10/18 [History] Digoxin [Lanoxin] 0.125 mg PO DAILY 02/10/18 [History] Ferrous Sulfate [Iron] 325 mg PO Q48H 02/10/18 [History] Furosemide [Lasix] 20 mg PO BID 02/10/18 [History] Isosorbide MONOnitrate (24 HR) [Imdur] 30 mg PO DAILY 02/10/18 [History] Lisinopril [Zestril] 40 mg PO DAILY 02/10/18 [History] Nitroglycerin [Nitrostat] 0.4 mg SL Q5M PRN 02/10/18 [History] Pregabalin [Lyrica] 75 mg PO BID 02/10/18 [History] Simvastatin [Zocor] 20 mg PO HS 02/10/18 [History] methIMAzole [Methimazole] 40 mg PO DAILY 02/10/18 [History] Apixaban [Eliquis] 5 mg PO BID #60 tablet 02/12/18 [Rx] Diltiazem CD (24hr) [Cardizem CD] 120 mg PO DAILY #30 cap.er.24h 02/12/18 [Rx] Amitriptyline [Elavil] 25 mg PO HS 03/08/18 [History] Venlafaxine HCl [Venlafaxine HCl ER] 75 mg PO DAILY 03/08/18 [History] Lactobacillus [Culturelle] 1 each PO DAILY #90 cap.sprink 05/25/18 [Rx] Alendronate Sodium [Fosamax] 70 mg PO GUERRIER 09/23/18 [History] Oxycodone HCl [Roxybond] 5 mg PO BID PRN 09/23/18 [History] Amoxicillin/Clavulanate [Augmentin] 875 mg PO BIDWM #8 tablet 09/27/18 [Rx] Allergy/AdvReac Type Severity Reaction Status Date / Time hydrocodone [From Vicodin] Allergy Swelling Verified 09/27/18 19:34 of Lip/Tongue/Throat morphine AdvReac Rash Verified 09/27/18 19:34 All Systems PM: A 10-system review of systems was performed and is negative for pertinent findings except as documented above in the HPI. - Constitutional Constitutional: as per HPI, no chills, no fever(s), no night sweats - EENT Eyes: as per HPI, no change in vision, no discharge, no pain, no photophobia Ears: no ear discharge, no ear pain, no tinnitus Nose, mouth and throat: as per HPI, no dysphagia, no nasal discharge, no neck pain, no sore throat - Breasts Breasts: as per HPI - Cardiovascular Cardiovascular ROS IM: as per HPI, no chest pain, no diaphoresis, no dyspnea, no lightheadedness, no palpitations, no syncope - Respiratory Respiratory: as per HPI, no cough, no dyspnea, no wheezing, no excessive phlegm production - Gastrointestinal Gastrointestinal: as per HPI, no abdominal pain, no diarrhea, no hematemesis, no hematochezia, no melena, no nausea, no vomiting - Genitourinary Genitourinary: as per HPI, no change in urinary stream, no dysuria, no flank pain, no hematuria - Musculoskeletal Musculoskeletal ROS IM: as per HPI, no numbness, no tingling - Integumentary Integumentary IM: as per HPI, no rash, no unusual bruising - Neurological Neurological ROS: as per HPI, no confusion, no convulsions, no focal weakness, no numbness, no tingling, no tremor(s) - Hematologic/Lymphatic Hematologic/Lymphatic: no easy bruising - Constitutional Vitals: Temp Pulse Resp BP Pulse Ox 97.0 F L 123 18 110/50 99 10/07/18 10:44 10/07/18 10:44 10/07/18 10:44 10/07/18 10:44 10/07/18 10:44 General appearance: Present: A&O X 3, pleasant - Head Head exam: Present: atraumatic, normocephalic - Eye Eye exam: Present: PERRL, conjuntiva pink, sclera anicteric Pupils: Present: PERRL - Neck Neck exam general surgery: Present: supple, trachea midline. Absent: lymphadenopathy - Respiratory Respiratory exam: Present: CTAB. Absent: accessory muscle use, rales, rhonchi, wheezes Additional comments: Lungs are clear throughout upper morrow with diminished bases. Respiratory effort appears relaxed while at rest. No productive cough noted. - Cardiovascular Cardiovascular exam: Present: irregular rhythm, RRR, +S1, +S2. Absent: diastolic murmur, gallop, rubs, systolic murmur Additional comments: Heart rate remains irregular with current ventricular rate at 100-110. 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 - GI/Abdominal GI/Abdominal exam: Present: normal bowel sounds, soft, no peritoneal signs. Absent: distended, tenderness - Extremities Exam Extremities exam: Present: warm, radial pulses palpable and symmetrical. Absent: calf tenderness, cyanotic, pedal edema - Neurological Exam Neurological exam: Present: CN II-XII intact, oriented X3, no focal deficits. Absent: pronater drift, facial droop, speech deficit - Skin Skin exam: Present: dry, intact
[2018-10-08 05:22] LABS: Hematocrit 37.4 % (35.3-44.9); Mean Corpuscular HGB Conc 32.1 g/dL (31.6-35.5); Mean Corpuscular Hemoglobin 28.4 pg (28.0-33.3); Mean Corpuscular Volume 88.6 fL (83.0-100.0); Mean Platelet Volume 11.3 fL (9.4-12.4); Platelet Count 290 K/mcL (140-400); Red Blood Count 4.22 M/mcL (3.82-4.97); Red Cell Distribution Width 15.9 % (11.5-14.5)
[2018-10-08 05:42] LABS: Alanine Aminotransferase 32 Units/L (7-52); Albumin 3.3 g/dL (3.5-5.7); Albumin/Globulin Ratio 0.8 (1.1-2.2); Alkaline Phosphatase 356 Units/L (34-104); Aspartate Amino Transferase 40 Units/L (13-39); BUN/Creatinine Ratio 76 (6-26); Bilirubin,Total 0.9 mg/dL (0.3-1.0); Blood Urea Nitrogen 25 mg/dL (8-23); Calcium 9.1 mg/dL (8.6-10.3); Carbon Dioxide 31 mEq/L (23-29); Chloride 100 mEq/L (98-107); Globulin 4.3 g/dL (2.4-3.5); Glucose 89 mg/dL (70-105); Magnesium 2.3 mg/dL (1.6-2.6); Osmolality,Calculated 286 (280-300); Potassium 4.4 mEq/L (3.5-5.1); Sodium 136 mEq/L (136-145); Total Protein 7.6 g/dL (6.4-8.9); eGFR For Non-African Americans > 60 (> 60)
[2018-10-08] MEDS: Diltiazem CD (24hr) 120 MG CAPSULE PO SCH (08:56)
[2018-10-08] MEDS: Venlafaxine XR (24 HR) 75 MG CAP.ER.24H PO SCH (08:56)
[2018-10-08] MEDS: *HR* Digoxin 0.25 MG TABLET PO SCH (08:56)
[2018-10-08] MEDS: Aspirin 325 MG TABLET PO SCH (08:56)
[2018-10-08] MEDS: Bumetanide 1 MG TABLET PO SCH (08:57)
[2018-10-08] MEDS: Apixaban 5 MG TABLET PO SCH ×2 (08:57→21:18)
[2018-10-08] MEDS: traMADol 50 MG TABLET PO PRN ×3 (08:57→21:16)
[2018-10-08] MEDS: Furosemide 20 MG TABLET PO SCH ×2 (08:57→16:25)
[2018-10-08] MEDS: Lactobacillus 1 EACH CAP.SPRINK PO SCH (08:57)
[2018-10-08] MEDS: Pregabalin 50 MG CAPSULE PO SCH ×2 (08:58→21:18)
[2018-10-08] MEDS: Isosorbide MONOnitrate (24 HR) 30 MG TAB.ER.24H PO SCH (08:58)
[2018-10-08] MEDS: methIMAzole 5 MG TABLET PO SCH ×2 (08:59→10:49)
[2018-10-08 19:07] LABS: % Iron Saturation 12 % (15-50); Iron 46 mcg/dL (50-170); Transferrin 273 mg/dL (203-362)
[2018-10-09] MEDS: traMADol 50 MG TABLET PO PRN ×3 (03:46→17:00)
[2018-10-09] MEDS: Aspirin 325 MG TABLET PO SCH (10:30)
[2018-10-09] MEDS: *HR* Digoxin 0.25 MG TABLET PO SCH (10:30)
[2018-10-09] MEDS: Venlafaxine XR (24 HR) 75 MG CAP.ER.24H PO SCH (10:30)
[2018-10-09] MEDS: Bumetanide 1 MG TABLET PO SCH (10:31)
[2018-10-09] MEDS: Pregabalin 50 MG CAPSULE PO SCH ×2 (10:31→19:52)
[2018-10-09] MEDS: Diltiazem CD (24hr) 120 MG CAPSULE PO SCH (10:31)
[2018-10-09] MEDS: Apixaban 5 MG TABLET PO SCH ×2 (10:31→19:53)
[2018-10-09] MEDS: Furosemide 20 MG TABLET PO SCH ×2 (10:31→16:54)
[2018-10-09] MEDS: Isosorbide MONOnitrate (24 HR) 30 MG TAB.ER.24H PO SCH (10:31)
[2018-10-09] MEDS: Lactobacillus 1 EACH CAP.SPRINK PO SCH (10:31)
[2018-10-09] MEDS: methIMAzole 5 MG TABLET PO SCH (10:45)
--- NOTE | 2018-10-09 16:35 | Internal Med Progress Note ---
Date of Encounter: 10/09/18 Time of Encounter: 13:40 - Subjective Interval history: Assessment and Plans (1) uncontrolled Hyperthyroidism - acute on chronic symptomatic Current visit: No Status: Acute Patient continues with hyperthyroidism with TSH less than 0.010 recently. PT continues with intermittent tachycardia and weakness and muscle wasting. She is continued on TApazole. Patient with consultation scheduled for October for treatment and evaluation. Patient currently with atrial fibrillation with RVR, most likely secondary to patient's hyperthyroidism. Patient also shows moderate weight loss with muscle wasting. We will continue to attempt to move about patient's consultation date for evaluation. Currently plan is for radioactive iodine or other presumptive treatment - plan to transfer pt to [facility]. (2) Elevated Alk Phos / LFT she has hx of remote Cholcystectomy not improving may be related to her gastric bypass will get RUQ ultrasound - she had MRI of liver in april 2018 will order fractionated alk phos to help determine origin consider bone scan calcium has been ok will DC her statin as lipids have been low would not restart statin (3) Diastolic CHF, acute on chronic Current visit: Yes Status: Chronic No acute issues at this time. Patient with long history of CHF. Patient's most recent BNP was greater than 2000. Most recent echocardiogram was at 09/24/18. EF was 50%. We will continue with current medications. She is on both lasix and bumex will recheck lytes may be able to stop bumex she has had no chest pain over last 4 days EKG did not show any acute changes She does have chronic musculoskeletal pain BP running low will put parameters on her oral long acting nitro may be able to DC (4) hyponatremia improving currently will follow (5) Hx remote Gastric Bypass surgery with malabsorption, low body weight, du mping syndrome, protein calorie malnutrition, low serum albumen and vitamin levels. continue replacements and monitoring cre low low body muscle mass consider megace to improve appetite continues on iron QOD pt does not like ensure she would benefit from oral liquid protein supplement - either concentrated form, or clear supplement such as enlive her 2017 Lipid panel showed very low cholesterol, as seen in malabsorption or starvation. Will DC her statin as is not needed. Will repeat her lipid panel to document. (6) Atrial Fib Flutter - likely related to hyperthyroid complicated by extreme intolerance of activity due to rapid increase in HR Had to DC physical therapy rate still at times up to 130 with activity continue dig and cardizem sensitive to beta césar - current has prn lopressor 12.5 check Dig level (7) Depression/anxiety reports worse after her years ago she has also lost some siblings denies SI her blood pressure runs low will adjust her elavil down from 25 mg at hs to 10 mg as may lower BP will consider decrease lyrica she also takes tramadol and benzo and effexor (7) chronic anticoagulation continue asa and apixaban will add pepcid for GI protection Hb has been stable no sign of bleeding INTERVAL HX Ms. Dobbins is a 63 year old female , who was originally admitted to an [facility] was symptoms of exacerbation of CHF. This was due to high cardiac output and uncontrolled atrial flutter due to uncontrolled hyper thyroidism. Today she reports no diarrhea Not eating very well will not drink ensure no cp BP runs low HR still up with any exertion EXAM General appearance: Present: A&O X 3, frail cachectic WF - Head Head exam: Present: atraumatic, normocephalic - Eye Eye exam: Present: PERRL, conjuntiva pink, sclera anicteric Pupils: Present: PERRL - Neck Neck exam general surgery: Present: supple, trachea midline. Absent: lymphadenopathy - Respiratory Respiratory exam: Present: CTAB. Absent: accessory muscle use, rales, rhonchi, wheezes Additional comments: Lungs are clear throughout upper morrow with diminished bases. Respiratory e ffort appears relaxed while at rest. No productive cough noted. - Cardiovascular Cardiovascular exam: Present: irregular rhythm, RRR, +S1, +S2. Absent: diastol ic murmur, gallop, rubs, systolic murmur Additional comments: Heart rate remains irregular with current ventricular rate at 100-110. 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 - GI/Abdominal GI/Abdominal exam: Present: normal bowel sounds, soft, no peritoneal signs. Absent: distended, tenderness - Extremities Exam Extremities exam: Present: warm, radial pulses palpable and symmetrical. Absent: calf tenderness, cyanotic, pedal edema - Neurological Exam Neurological exam: Present: CN II-XII intact, oriented X3, no focal deficits. Absent: pronater drift, facial droop, speech deficit - Skin Skin exam: Present: dry, intact - Constitutional Vitals: Temp Pulse Resp BP Pulse Ox 98.5 F 83 14 108/64 98 10/09/18 12:00 10/09/18 12:00 10/09/18 12:00 10/09/18 12:00 10/09/18 12:00 General appearance: Present: A&O X 3, pleasant Internal Medicine: Result - Labs CBC & Chem 7: 10/08/18 05:05 10/08/18 05:05 Consult Discharge Plan - Plan Referrals: Mu Smith, DIRECTOR OF MARKET ANALYSIS [Primary Care Provider] -
[2018-10-09] MEDS: Famotidine 20 MG TABLET PO SCH (19:52)
[2018-10-10] MEDS: traMADol 50 MG TABLET PO PRN ×4 (00:20→20:18)
[2018-10-10 05:43] LABS: Chol/HDL Ratio 2.8 (0-4.9); Digoxin 0.7 ng/mL (0.8-2.0)
[2018-10-10] MEDS: methIMAzole 5 MG TABLET PO SCH (10:40)
[2018-10-10] MEDS: Famotidine 20 MG TABLET PO SCH ×2 (10:41→20:18)
[2018-10-10] MEDS: Pregabalin 50 MG CAPSULE PO SCH ×2 (10:41→20:18)
[2018-10-10] MEDS: Bumetanide 1 MG TABLET PO SCH (10:41)
[2018-10-10] MEDS: Aspirin 325 MG TABLET PO SCH (10:41)
[2018-10-10] MEDS: Isosorbide MONOnitrate (24 HR) 30 MG TAB.ER.24H PO SCH (10:41)
[2018-10-10] MEDS: Diltiazem CD (24hr) 120 MG CAPSULE PO SCH (10:41)
[2018-10-10] MEDS: Lactobacillus 1 EACH CAP.SPRINK PO SCH (10:42)
[2018-10-10] MEDS: Apixaban 5 MG TABLET PO SCH ×2 (10:42→20:18)
[2018-10-10] MEDS: *HR* Digoxin 0.25 MG TABLET PO SCH (10:42)
[2018-10-10] MEDS: Venlafaxine XR (24 HR) 75 MG CAP.ER.24H PO SCH (10:42)
[2018-10-10] MEDS: Furosemide 20 MG TABLET PO SCH ×2 (10:42→18:40)
--- NOTE | 2018-10-10 15:10 | Internal Med Progress Note ---
Addendum entered and electronically signed by Marvin Lee MD 10/10/18 16:21: I have personally performed a face to face evaluation on this patient. I have r eviewed and agree with the care plan. History and Exam by me shows: Patient is symptomatically without problem except left shoulder pain which is new for the last 4 days. She knows of no injury, etc. Her heart is still quite tachycardic and she feels that is pounding. She denies chest pain or pressure, breathing problems, etc. Discussed care with other providers and/or nursing. Patient has no complaint of chest discomfort, dyspnea, orthopnea, palpitations, nausea or vomiting, constipation or diarrhea, other changes in bowel habits, difficulty with urination, rash or itching, or other new complaints, except as mentioned above. Review of systems is otherwise negative. Examination: (Except as mentioned above): General: In no apparent distress. Alert and oriented 3. Nondiaphoretic. Head: Atraumatic and normocephalic. Respiratory: No use of accessory muscles. Lungs are clear throughout. Normal airflow. Cardiovascular: Irregularly irregular in just over 100 in terms of rate. No murmur appreciated, today. Abdomen: Bowel sounds are normal. No hepatosplenomegaly mass or tenderness appreciated. Obese and therefore difficult to palpate deeply. Extremities: No cyanosis clubbing or edema. Skin: Warm and non-diaphoretic with no new lesions noted. She had a rate that approach 140 this morning. We are increasing her Cardizem and hope this will control her rate. With the addition of beta césar on multiple occasions she is become too bradycardic. Original Note: Date of Encounter: 10/10/18 Time of Encounter: 15:07 - Assessment and plan (1) Atrial fibrillation with RVR Current Visit: No Status: Chronic Assessment and plan: Patient continues with various circular rates, depending on activity. While at rest patient's heart rate remains irregular with a ventricular rate between 80 and 100. Patient was noted to have a heart rate that increased greater than 110 Jono this morning after she attempted to transfer to a chair from her bed. Patient denies any palpitations or chest discomforts. Patient continues on when necessary Lopressor. We will increase current Cardizem dosing and monitor heart rate overnight. (2) COPD (chronic obstructive pulmonary disease) Current Visit: Yes Status: Chronic Assessment and plan: No acute issues at this time. Lungs are clear throughout. Patient continues with slight dyspnea with exertion. No productive cough. Respiratory effort appears relaxed while at rest Qualifiers: COPD type: unspecified COPD Qualified Code(s): J44.9 - Chronic obstructive pulmonary disease, unspecified (3) Diastolic CHF, acute on chronic Current Visit: Yes Status: Chronic Assessment and plan: No acute issues at this time. Patient's heart rate remains irregular. Lungs are clear throughout. Patient continues with slight dyspnea with exertion. We will continue with current medications. (4) Hyperthyroidism Current Visit: No Status: Acute Assessment and plan: Patient continues with effects of hyperthyroidism. Patient has a follow-up appointment scheduled in a few weeks with endocrinology at [facility]. Patient to continue with current follow-up appointment and we will continue to treat affects of symptoms - Time Spent With Patient less than 15 minutes - Subjective Interval history: Patient appears relaxed and currently denies any dyspnea or palpitations. Patient does complain of vague pain to her left shoulder and arm which she states increases with range of motion and palpation. No deformity or obvious injury noted and patient denies any injury. Patient states that her pain to his began this morning and is intermittent patient has had multiple complaints of arthritic type pain to various joints and back. - Constitutional Vitals: Temp Pulse Resp BP Pulse Ox 97.8 F 94 16 102/74 99 10/10/18 08:03 10/10/18 11:16 10/10/18 11:16 10/10/18 11:16 10/10/18 11:16 General appearance: Present: A&O X 3, pleasant - Head Head exam: Present: atraumatic, normocephalic - Eye Eye exam: Present: PERRL, conjuntiva pink, sclera anicteric Pupils: Present: PERRL - Neck Neck exam general surgery: Present: supple, trachea midline. Absent: lymphadenopathy - Respiratory Respiratory exam: Present: CTAB. Absent: accessory muscle use, rales, rhonchi, wheezes - Cardiovascular Cardiovascular exam: Present: irregular rhythm, RRR, +S1, +S2. Absent: diastolic murmur, gallop, rubs, systolic murmur Additional comments: patient continues in atrial fibillaion with various rates, depending on patient's activity. While at rest patient's heart rate has been between 80 and 100, but during transfer to a chair patient's heart rate was greater than 110. - GI/Abdominal GI/Abdominal exam: Present: normal bowel sounds, soft, no peritoneal signs. Absent: distended, tenderness - Extremities Exam Extremities exam: Present: warm, radial pulses palpable and symmetrical. Absent: calf tenderness, cyanotic, pedal edema - Neurological Exam Neurological exam: Present: CN II-XII intact, oriented X3, no focal deficits. Absent: pronater drift, facial droop, speech deficit - Skin Skin exam: Present: dry, intact Internal Medicine: Result - Labs CBC & Chem 7: 10/08/18 05:05 10/08/18 05:05 Consult Discharge Plan - Plan Referrals: Mu Smith, INTERNET MARKETER [Primary Care Provider] -
[2018-10-11] MEDS: Pregabalin 50 MG CAPSULE PO SCH ×2 (08:20→20:06)
[2018-10-11] MEDS: Bumetanide 1 MG TABLET PO SCH (08:20)
[2018-10-11] MEDS: *HR* Digoxin 0.25 MG TABLET PO SCH (08:20)
[2018-10-11] MEDS: Aspirin 325 MG TABLET PO SCH (08:20)
[2018-10-11] MEDS: Diltiazem CD (24hr) 180 MG CAPSULE PO SCH (08:20)
[2018-10-11] MEDS: traMADol 50 MG TABLET PO PRN ×2 (08:20→20:08)
[2018-10-11] MEDS: Apixaban 5 MG TABLET PO SCH ×2 (08:20→20:08)
[2018-10-11] MEDS: Venlafaxine XR (24 HR) 75 MG CAP.ER.24H PO SCH (08:20)
[2018-10-11] MEDS: Furosemide 20 MG TABLET PO SCH ×2 (08:21→18:16)
[2018-10-11] MEDS: Lactobacillus 1 EACH CAP.SPRINK PO SCH (08:21)
[2018-10-11] MEDS: methIMAzole 5 MG TABLET PO SCH ×2 (08:21→20:07)
[2018-10-11] MEDS: Famotidine 20 MG TABLET PO SCH ×2 (08:21→20:06)
[2018-10-11] MEDS: Isosorbide MONOnitrate (24 HR) 30 MG TAB.ER.24H PO SCH (08:21)
--- NOTE | 2018-10-11 13:45 | Internal Med Progress Note ---
Date of Encounter: 10/11/18 Time of Encounter: 13:43 - Assessment and plan (1) CAD (coronary artery disease) Current Visit: No Status: Chronic Assessment and plan: This is clinically stable without symptoms. (2) Atrial fibrillation with RVR Current Visit: No Status: Chronic Assessment and plan: Her uncontrolled heart rate remains a concern. We will try again tomorrow on the extra dose of Cardizem CD. This does not help, we will try to transfer her again to [facility]. (3) Elevated liver enzymes Current Visit: Yes Status: Acute Assessment and plan: Ultrasound of abdomen is been requested and is currently scheduled. (4) Hyperthyroidism Current Visit: Yes Status: Chronic Assessment and plan: The patient's methimazole was changed to 40 mg daily from the 30 mg twice a day dose that she had been on. Apparently, this was a computer error and we will return her to the previous dose, today. I have checked thyroid functions, a gain. (5) General weakness Current Visit: No Status: Acute Assessment and plan: This is slowly improved but is still greatly limited. This is attributed primarily to hyperthyroidism. - Subjective Interval history: Patient is without complaint. Her breathing is about the same. She has less shoulder pain and yesterday. She is moving her bowels reasonably well and has no urinary complaints. Nursing notes that she had a heart rate of about 135, again this morning. This was after she received a dose of as needed metoprolol. Discussed care with other providers and/or nursing. Patient has no complaint of chest discomfort, dyspnea, orthopnea, palpitations, nausea or vomiting, constipation or diarrhea, other changes in bowel habits, difficulty with urination, rash or itching, or other new complaints, except as mentioned above. Review of systems is otherwise negative. Examination: (Except as mentioned above): General: In no apparent distress. Alert and oriented 3. Nondiaphoretic. Head: Atraumatic and normocephalic. Respiratory: No use of accessory muscles. Lungs are clear throughout. Normal airflow. Cardiovascular: Irregularly irregular with a rate of about 80. Abdomen: Bowel sounds are normal. No hepatosplenomegaly mass or tenderness appreciated. Obese and therefore difficult to palpate deeply. Extremities: No cyanosis clubbing or edema. Skin: Warm and non-diaphoretic with no new lesions noted. - Constitutional Vitals: Temp Pulse Resp BP Pulse Ox 97.5 F L 62 12 112/70 98 10/11/18 11:28 10/11/18 11:28 10/11/18 11:28 10/11/18 11:28 10/11/18 11:28 General appearance: Present: A&O X 3, pleasant Internal Medicine: Result - Labs CBC & Chem 7: 10/08/18 05:05 10/08/18 05:05 Consult Discharge Plan - Plan Referrals: Mu Smith, TRACKMAN [Primary Care Provider] -
[2018-10-12] MEDS: traMADol 50 MG TABLET PO PRN ×2 (03:59→09:54)
[2018-10-12 05:32] LABS: Basophils % 0.5 %; Eosinophils # 0.5 K/mcL (0.0-0.6); Hematocrit 35.5 % (35.3-44.9); Hemoglobin 11.6 g/dL (11.5-15.4); Immature Granulocytes % 0.3 % (0-4); Lymphocytes # 1.2 K/mcL (0.6-4.6); Lymphocytes % 20.5 %; Mean Corpuscular HGB Conc 32.7 g/dL (31.6-35.5); Mean Corpuscular Volume 88.8 fL (83.0-100.0); Mean Platelet Volume 10.7 fL (9.4-12.4); Monocytes # 0.4 K/mcL (0.0-1.3); Monocytes % 6.8 %; Neutrophils # 3.7 K/mcL (1.6-8.9); Platelet Count 318 K/mcL (140-400); Red Cell Distribution Width 15.6 % (11.5-14.5); Segmented Neutrophils % 62.9 %
[2018-10-12 05:48] LABS: Alanine Aminotransferase 46 Units/L (7-52); Albumin 3.2 g/dL (3.5-5.7); Albumin/Globulin Ratio 0.8 (1.1-2.2); Alkaline Phosphatase 373 Units/L (34-104); Aspartate Amino Transferase 57 Units/L (13-39); BUN/Creatinine Ratio 61 (6-26); Bilirubin,Total 0.8 mg/dL (0.3-1.0); Blood Urea Nitrogen 20 mg/dL (8-23); Carbon Dioxide 31 mEq/L (23-29); Chloride 99 mEq/L (98-107); Glucose 79 mg/dL (70-105); Osmolality,Calculated 278 (280-300); Potassium 4.4 mEq/L (3.5-5.1); Sodium 133 mEq/L (136-145); Total Protein 7.2 g/dL (6.4-8.9); eGFR For Non-African Americans > 60 (> 60)
[2018-10-12 07:38] VITALS: BP 120/63
[2018-10-12] MEDS: Pregabalin 50 MG CAPSULE PO SCH (09:54)
[2018-10-12] MEDS: Bumetanide 1 MG TABLET PO SCH (09:54)
[2018-10-12] MEDS: methIMAzole 5 MG TABLET PO SCH (09:54)
[2018-10-12] MEDS: Isosorbide MONOnitrate (24 HR) 30 MG TAB.ER.24H PO SCH (09:54)
[2018-10-12] MEDS: Venlafaxine XR (24 HR) 75 MG CAP.ER.24H PO SCH (09:54)
[2018-10-12] MEDS: Apixaban 5 MG TABLET PO SCH (09:55)
[2018-10-12] MEDS: Furosemide 20 MG TABLET PO SCH (09:55)
[2018-10-12] MEDS: Aspirin 325 MG TABLET PO SCH (09:55)
[2018-10-12] MEDS: Lactobacillus 1 EACH CAP.SPRINK PO SCH (09:55)
[2018-10-12] MEDS: Diltiazem CD (24hr) 180 MG CAPSULE PO SCH (09:55)
[2018-10-12] MEDS: Famotidine 20 MG TABLET PO SCH (09:55)
--- NOTE | 2018-10-12 11:46 | Discharge Summary ---
Addendum entered and electronically signed by Marvin Lee MD 10/13/18 11:49: I have personally performed a face to face evaluation on this patient. I have r eviewed and agree with the care plan. History and Exam by me shows: The patient was evaluated by me yesterday but the note was not complete. This documentation is being completed today for that reason. I expressed to patient that it is important that she keep her follow-up with endocrinology at [facility] this coming Wednesday. We explained medication changes to her and made sure that nursing will talk about changes to her daughter. Her daughter was not available by telephone or in person when I was here. Discussed care with other providers and/or nursing. Patient has no complaint of chest discomfort, dyspnea, orthopnea, palpitations, nausea or vomiting, constipation or diarrhea, other changes in bowel habits, difficulty with urination, rash or itching, or other new complaints, except as mentioned above. Review of systems is otherwise negative. Examination: (Except as mentioned above): General: In no apparent distress. Alert and oriented 3. Nondiaphoretic. Head: Atraumatic and normocephalic. Respiratory: No use of accessory muscles. Lungs are clear throughout. Normal airflow. Cardiovascular: Irregularly irregular but rate is now controlled in the high 80s. Abdomen: Bowel sounds are normal. No hepatosplenomegaly mass or tenderness appreciated. Obese and therefore difficult to palpate deeply. Extremities: No cyanosis clubbing or edema. Skin: Warm and non-diaphoretic with no new lesions noted. Original Note: - NOTES TO OUTPATIENT PROVIDER Notes to Outpatient Provider: follow up with endocrinology 10/17/2018, cardiology and PCP. to have upper abd ultrasound due to elevated alk phos. Orders not resulted at time of discharge: Pending orders 10/10/18 05:10 Alkaline Phosphatase Isoenzyme AM 0400 10/11/18 12:50 US liver [US] Routine Date of Encounter: 10/12/18 Time of Encounter: 11:44 - Discharge Diagnosis (1) Hyperthyroidism Priority: Primary Status: Acute Comments: continue methimazole 30mg BID. Follow up with eye dropper assembler at [facility] on . (2) COPD (chronic obstructive pulmonary disease) Priority: Secondary Status: Chronic Comments: Stable. Continue oxygen per nasal cannula. Monitoring O2 sats greater than 95%. Continue inhaled medication. Qualifiers: COPD type: unspecified COPD Qualified Code(s): J44.9 - Chronic obstructive pulmonary disease, unspecified (3) CAD (coronary artery disease) Priority: Secondary Status: Chronic Comments: Stable. Denies chest pain. Continue current medication. Qualifiers: Coronary Disease-Associated Artery/Lesion type: [place] artery [place] vs. transplanted heart: [place] heart Associated angina: without angina Qualified Code(s): I25.10 - Atherosclerotic heart disease of [place] coronary artery without angina pectoris (4) Afib Priority: Secondary Status: Chronic Comments: Rate and rhythm controlled. Continue eliquis. Qualifiers: Atrial fibrillation type: chronic Qualified Code(s): I48.2 - Chronic atrial fibrillation (5) General weakness Priority: Primary Status: Acute Comments: Ambulating household distances. Completed PT and OT goals. Hospital course: Ms. Dobbins is a 63 year old female discharging to home with daughter. Patient was admitted here from [facility]. Admitted for general weakness after hospitalization for chest pain. chest pain has improved. pt has hx of hyperthyroidism, methimazole with increased to 30mg BID. HR has been more controlled with this. pt to see [facility] eye dropper assembler on 10/17/2018. Denies fever, chills, nausea, vomiting or diarrhea. Denies chest pain or shortness of breath at this time. Denies any further concerns or questions at this time. instructed to also follow up with cardiology and PCP in 1 week. Discharge discussed with: patient, family, nurse, social work - Time Spent with Patient Total time spent providing and/or coordinating discharge services: Less than 30 minutes - Discharge Medications Home Medications: ALPRAZolam [Xanax 0.5 MG Tablet] 0.5 mg PO TID 02/10/18 [History] Aspirin 325 mg PO DAILY 02/10/18 [History] Bumetanide [Bumex] 1 mg PO DAILY 02/10/18 [History] Ferrous Sulfate [Iron] 325 mg PO Q48H 02/10/18 [History] Furosemide [Lasix] 20 mg PO BID 02/10/18 [History] Isosorbide MONOnitrate (24 HR) [Imdur] 30 mg PO DAILY 02/10/18 [History] Nitroglycerin [Nitrostat] 0.4 mg SL Q5M PRN 02/10/18 [History] Pregabalin [Lyrica] 75 mg PO BID 02/10/18 [History] Simvastatin [Zocor] 20 mg PO HS 02/10/18 [History] methIMAzole [Methimazole] 40 mg PO DAILY 02/10/18 [History] Apixaban [Eliquis] 5 mg PO BID #60 tablet 02/12/18 [Rx] Venlafaxine HCl [Venlafaxine HCl ER] 75 mg PO DAILY 03/08/18 [History] Lactobacillus [Culturelle] 1 each PO DAILY #90 cap.sprink 05/25/18 [Rx] Alendronate Sodium [Fosamax] 70 mg PO GUERRIER 09/23/18 [History] Amitriptyline [Elavil] 10 mg PO HS 14 Days #14 tablet 10/12/18 [Rx] Digoxin [Lanoxin] 0.25 mg PO DAILY 14 Days #14 tablet 10/12/18 [Rx] Diltiazem CD (24hr) [Cardizem CD] 180 mg PO DAILY 14 Days #14 cap.er.24h 10/12/18 [Rx] Famotidine [Pepcid] 20 mg PO BID 14 Days #28 tablet 10/12/18 [Rx] Lidocaine Patch [Lidoderm 5% patch] 1 each TP DAILY 7 Days #7 adh..patch 10/12/18 [Rx] methIMAzole [Tapazole] 30 mg PO BID 14 Days #28 tablet 10/12/18 [Rx] Allergies/Adverse Reactions: Allergy/AdvReac Type Severity Reaction Status Date / Time hydrocodone [From Vicodin] Allergy Swelling Verified 09/27/18 19:34 of Lip/Tongue/Throat morphine AdvReac Rash Verified 09/27/18 19:34 Date of admission: 10/06/18 15:23 Primary care physician: Mu Smith CNP Consults: 10/06/18 18:15 Consult to Portfolio Management Marketing [CONS] Routine Reason for SW Consult: discharge planning 10/06/18 18:16 Consult to Psychology [CONS] Routine Consulting Provider: Romina Wilkins Reason for Consult: Possible depression; adjustment disorder Call Completed: No Discharging clinician: Marvin Lee Anticipated date of discharge: 10/12/18 - Constitutional Vitals: Temp Pulse Resp BP Pulse Ox 97.5 F L 59 17 120/63 100 10/12/18 07:30 10/12/18 07:30 10/12/18 07:30 10/12/18 07:30 10/12/18 07:30 General appearance: Present: A&O X 3, pleasant, no acute distress, answers questions appropriately Exam: Hard of hearing and thin - Head Head exam: Present: atraumatic, normocephalic - Eye Eye exam: Present: PERRL, conjuntiva pink, sclera anicteric Pupils: Present: PERRL - Neck Neck exam general surgery: Present: supple, trachea midline. Absent: lym phadenopathy - Respiratory Respiratory exam: Present: CTAB. Absent: accessory muscle use, rales, rhonchi, wheezes - Cardiovascular Cardiovascular exam: Present: irregular rhythm, +S1, +S2. Absent: diastolic murmur, gallop, rubs, systolic murmur - GI/Abdominal GI/Abdominal exam: Present: normal bowel sounds, soft, no peritoneal signs. Absent: distended, tenderness - Extremities Exam Extremities exam: Present: warm, radial pulses palpable and symmetrical. Absent: calf tenderness, cyanotic, pedal edema - Neurological Exam Neurological exam: Present: CN II-XII intact, oriented X3, no focal deficits. Absent: pronater drift, facial droop, speech deficit - Skin Skin exam: Present: dry, intact - Patient Status Disposition: Home, Self-Care Condition: Fair Functional capacity at discharge: uses cane/walker Overall status at discharge: patient is progressing back to baseline - Discharge Instructions Follow Up With: Mu Smith, SEMICONDUCTOR ENGINEER [Primary Care Provider] - - Diet and Activity Activity: increase activity as tolerated Diet: advance to your usual diet
[2018-10-12] MEDS: *HR* Digoxin 0.25 MG TABLET PO SCH (12:13)
--- NOTE | 2018-10-12 13:53 | Physician Discharge Referral ---
Addendum entered and electronically signed by Marvin Lee MD 10/13/18 11:49: Original Note: Home Health/Hosp Referral Info Transfer to: Home Health Provider in Charge Post Discharge: PCP - Diagnosis (1) Hyperthyroidism Priority: Primary Status: Acute (2) COPD (chronic obstructive pulmonary disease) Priority: Secondary Status: Chronic (3) CAD (coronary artery disease) Priority: Secondary Status: Chronic (4) Afib Priority: Secondary Status: Chronic (5) General weakness Priority: Primary Status: Acute - Respiratory Orders Smoking Cessation: Smoking cessation has been advised. For more information, call the [place] Tobacco Quit Line at 1-550-LWDI-NOW. - Diet/Nutrition Diet/Nutrition Orders: Cardiac - Activity Activity Orders: Ambulate, Walker - Services Needed Following services are medically necessary services: Nursing, Physical Therapy - Transfer Medications Prescriptions: Amitriptyline [Elavil] 10 mg PO HS 14 Days #14 tablet Digoxin [Lanoxin] 0.25 mg PO DAILY 14 Days #14 tablet Diltiazem CD (24hr) [Cardizem CD] 180 mg PO DAILY 14 Days #14 cap.er.24h Famotidine [Pepcid] 20 mg PO BID 14 Days #28 tablet Lidocaine Patch [Lidoderm 5% patch] 1 each TP DAILY 7 Days #7 adh..patch methIMAzole [Tapazole] 30 mg PO BID 14 Days #28 tablet Home Medications: ALPRAZolam [Xanax 0.5 MG Tablet] 0.5 mg PO TID 02/10/18 [History] Aspirin 325 mg PO DAILY 02/10/18 [History] Bumetanide [Bumex] 1 mg PO DAILY 02/10/18 [History] Ferrous Sulfate [Iron] 325 mg PO Q48H 02/10/18 [History] Furosemide [Lasix] 20 mg PO BID 02/10/18 [History] Isosorbide MONOnitrate (24 HR) [Imdur] 30 mg PO DAILY 02/10/18 [History] Nitroglycerin [Nitrostat] 0.4 mg SL Q5M PRN 02/10/18 [History] Pregabalin [Lyrica] 75 mg PO BID 02/10/18 [History] Simvastatin [Zocor] 20 mg PO HS 02/10/18 [History] methIMAzole [Methimazole] 40 mg PO DAILY 02/10/18 [History] Apixaban [Eliquis] 5 mg PO BID #60 tablet 02/12/18 [Rx] Venlafaxine HCl [Venlafaxine HCl ER] 75 mg PO DAILY 03/08/18 [History] Lactobacillus [Culturelle] 1 each PO DAILY #90 cap.sprink 05/25/18 [Rx] Alendronate Sodium [Fosamax] 70 mg PO GUERRIER 09/23/18 [History] Amitriptyline [Elavil] 10 mg PO HS 14 Days #14 tablet 10/12/18 [Rx] Digoxin [Lanoxin] 0.25 mg PO DAILY 14 Days #14 tablet 10/12/18 [Rx] Diltiazem CD (24hr) [Cardizem CD] 180 mg PO DAILY 14 Days #14 cap.er.24h 10/12/18 [Rx] Famotidine [Pepcid] 20 mg PO BID 14 Days #28 tablet 10/12/18 [Rx] Lidocaine Patch [Lidoderm 5% patch] 1 each TP DAILY 7 Days #7 adh..patch 10/12/18 [Rx] methIMAzole [Tapazole] 30 mg PO BID 14 Days #28 tablet 10/12/18 [Rx] Allergies/Adverse Reactions: Allergy/AdvReac Type Severity Reaction Status Date / Time hydrocodone [From Vicodin] Allergy Swelling Verified 09/27/18 19:34 of Lip/Tongue/Throat morphine AdvReac Rash Verified 09/27/18 19:34 Certification: Further, I certify that my clinical findings support that this patient is homebound (i.e. absences from home require considerable and taxing effort and are for medical reasons or judaism services or infrequently or short duration when for other reasons) because: Homebound Reason: Patient requires assistance of a person or device to safely leave home, Leaving home requires considerable and taxing effort due to condition Attestation: My signature below is to certify that this patient is under my care and that I, or nurse practitioner, or a physician's certified dental assistant working with me, has a [id number] encounter with this patient.
[2018-10-12 17:48] LABS: Alkaline Phosphatase 402 U/L (40-120); Alkaline Phosphatase Bone 137 U/L (0-55)
[2018-10-13 09:59] LABS: Alkaline Phosphatase Liver 265 U/L (0-94); Alkaline Phosphatase Other 0 U/L
== END 2018-10-12 14:18 | disposition home or self-care (01) | DRG 643 ==
LOC: INPGRE 15:23